=== PATIENT | male | born 1980 | race Caucasian/White ===

== ENCOUNTER 2018-11-08 10:50 | Inpatient (IN) | payer OTHER ==
[~2018-11-08] VITALS: Ht 167.6 cm; Wt 75.3 kg
[2018-11-08] MEDS ORDERED: ONDANSETRON (ODT) 4 MG TAB ODT STA (12:53)
[2018-11-08] MEDS ORDERED: GLIP10TA14 PO (13:04)
[2018-11-08] MEDS ORDERED: LISI-313 PO (13:05)
[2018-11-08] MEDS ORDERED: ONDANSETRON 4 MG INJ IV PRN ×2 (13:30→17:00)
[2018-11-08] MEDS ORDERED: ACETAMINOPHEN 325 MG TAB PO PRN ×2 (13:30→17:00)
[2018-11-08 14:00] VITALS: BP 121/75; PULSE 86; RESP 18
[2018-11-08] MEDS: AMPHOTERICIN B LIPOSOME 300 MG in DEXTROSE 5% 300 ML IVPB SCH (14:01)
[2018-11-08] MEDS ORDERED: SOD CHLORIDE 0.9% 100 ML ONE (14:27)
[2018-11-08] MEDS ORDERED: IOHEXOL 300MG/ML 150 ML BTL ONE (14:27)
[2018-11-08 15:24] VITALS: Ht 167.6 cm; Wt 75.3 kg
--- NOTE | 2018-11-08 15:59 | CONS ---
DATE OF ADMISSION: 11/08/2018 DATE OF CONSULTATION: 11/08/2018 TYPE OF CONSULTATION: Infectious disease. REASON FOR CONSULTATION: Antibiotic management. HISTORY OF PRESENT ILLNESS: Len Arias is a very pleasant 38-year-old male who was seen in my office yesterday for chronic pulmonary coccidioidomycosis with cavitation with possible dissemi nation. His problems include: 1. Adult-onset diabetes mellitus. 2. Hyperlipidemia. 3. Chronic pulmonary cocci. The patient claims to have cocci pneumonia in 05/2017. He was placed on fluconazole for a year, but admits that was stopped because of elevated liver function tests. He was sent to an ID consultation 11/2017 with titers of 1:256. His fluconazole was again stopped because of increased liver function tests. His cocci Comp fix was 1:1024. On 08/02/2018, he had a large ____ with cavity in the superio r segment of the left upper lobe of the lung. He complains of cough with muscle aches and pains. PAST MEDICAL HISTORY: Operations as outlined. FAMILY HISTORY: Noncontributory. SOCIAL HISTORY: He is , has a boy and a girl. His mother and father are alive. Has 1 brothe r and 3 sisters. He was born in [place], moved here 19 years ago. 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 Does not eat unpasteurized milk products, raw fish or raw meat. ALLERGIES: NONE TO PENICILLIN, SULFA OR FOODS. MEDICATIONS: Per chart. REVIEW OF SYSTEMS: As per HPI. PHYSICAL EXAMINATION: GENERAL: He is a well-developed, well-nourished male who is alert, responsive, in no acute distress. VITAL SIGNS: Stable. He is afebrile. SKIN: Without generalized rash. HEENT: Within normal limits. NECK: Supple. LYMPH NODES: None palpable. CHEST: Decreased breath sounds at the bases. HEART: Without murmur or gallop. ABDOMEN: Soft, nontender, without organosplenomegaly or masses. EXTREMITIES: Without cyanosis, clubbing or edema. RECTAL AND GENITAL: Deferred. NEUROLOGIC: No focal neurological abnormality. LABORATORY DATA: White count today is 6.9, H and H of 15.8 and 45.7, platelet count 267,000. BUN an d creatinine is 17/0.80. His urine is negative for nitrite and leukocyte esterase. Glucose is 3+ in the urine. IMAGING: His chest x-ray shows ill-defined left perihilar spiculated opacity measuring 2.6 cm. A fo llowup chest CT scan with contrast is recommended. IMPRESSION AND PLAN: The patient has chronic pulmonary cocci and may very well have disseminated joel ci, although Sporanox may be effective. It is more likely that he will need amphotericin B and he rodriguez s been started on the amphotericin B by Dr. Poole in the emergency room. He is on ____. He shoul d be seen by pulmonary. He should be seen by thoracic surgery. He probably needs a bone density lissette dy. He needs a PICC line and amphotericin B in order to get his cocci comp fixation down. I discuss ed the case with Dr. Poole and also with Dr. Calderón who will be the primary physician. Dictated By: MAYRA ZAPATA MD, JD/SHON Conf#: [id number] DID#: [id number] CC: ALYCE CALDERÓN;*EndCC*
--- NOTE | 2018-11-08 16:45 | QN ---
Documentation Comment SEEN AND EXAMINED ALYCE CALDERÓN MD Nov 08, 2018 16:45
[2018-11-08] MEDS ORDERED: AMPHOTERICIN B LIPOSOME 300 MG in DEXTROSE 5% 300 ML IVPB SCH (17:00)
[2018-11-08] MEDS ORDERED: NACL 0.9% 3 ML SYG IV SCH (17:00)
[2018-11-08] MEDS ORDERED: HYDROCODONE/APAP (5/325) TAB PO PRN (17:00)
[2018-11-08] MEDS ORDERED: MAGNESIUM HYDROXIDE 30ML CUP PO PRN (17:00)
[2018-11-08] MEDS: glipiZIDE 10 MG TAB PO SCH (17:35)
[2018-11-08] MEDS: ACCU-CHEK XX SCH ×2 (17:35→21:00)
[2018-11-08] MEDS ORDERED: DEXTROSE 50% 50 ML SYRINGE IV PRN ×2 (18:00)
[2018-11-08] MEDS ORDERED: GLUCOSE GEL 15 GRAM TUBE BUCCAL PRN (18:00)
[2018-11-08] MEDS ORDERED: GLUCAGON 1 MG INJ IM PRN (18:00)
[2018-11-08] MEDS ORDERED: GLUCOSE GEL 15 GRAM TUBE PO PRN ×2 (18:00)
[2018-11-08] MEDS: SOD CHLORIDE 0.9% 1,000 ML IV SCH (18:01)
[2018-11-08] MEDS: LISINOPRIL 5 MG TAB PO SCH (18:04)
[2018-11-08] MEDS: INSULIN ASPART [NOVOLOG] 3 ML PEN SC SCH ×2 (18:10→20:52)
--- NOTE | 2018-11-08 19:05 | HP ---
DATE OF ADMISSION: 11/08/2018 REASON FOR ADMISSION: Coccidioidomycosis. HISTORY OF PRESENTING ILLNESS: This is a 38-year-old male with past medical history of diabetes, hyp erlipidemia, who was diagnosed with cocci pneumonia in 05/2017. He was placed on fluconazole 400 mg for a year, but admits that it was stopped because of the elevated liver function tests. He was sent to ID consultation on 11/2017 with titers of 1:256. His fluconazole was again stopped because of in creased liver function tests. His cocci Comp fixation is 1:1024. Patient was seen by Dr. Zapata on 08/02/2018. He had a CT of the chest that showed large cavity 4 cm lesion in the superior segment of the left upper lobe consistent with coccidioidomycosis. He was complaining of cough, muscle ache pa in, shortness of breath and was sent in from Dr. Zapata's office for further evaluation. PAST MEDICAL HISTORY: 1. Diabetes type 2. 2. Hyperlipidemia. 3. Chronic pulmonary cocci. ALLERGIES: NONE. PAST SURGICAL HISTORY: None. SOCIAL HISTORY: Denies any history of smoking or drug use. Occasionally drinks alcohol. He lives [facility]. 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 He was from [place], moved here 19 years ago. Does not eat unpa steurized milk products, raw fish or raw meat. FAMILY HISTORY: Noncontributory. REVIEW OF SYSTEMS: The patient complains of some shortness of breath, some cough. Denied any fevers and chills. Denied any hemoptysis. Denied any chest pain. Denied any hematemesis, any melena, any bright red blood per rectum. Denied any focal neurological deficit. PHYSICAL EXAMINATION: VITAL SIGNS: Blood pressure 120/77, heart rate 62, temperature 98.6, afebrile, saturating 98%. GENERAL: The patient is awake, alert, oriented, does not appear to be in any acute distress. HEENT: Pupils are equal, round, reactive to light. NECK: Supple. No JVD. HEART: Regular rate and rhythm. LUNGS: Clear to auscultation bilaterally. ABDOMEN: Soft, nontender, nondistended, positive normoactive bowel sounds. EXTREMITIES: No clubbing, cyanosis or edema. NEUROLOGIC: Nonfocal. LABORATORY DATA: Showed BMP within normal limit. Glucose of 355. AST 85, ALT 163. White count 6.9 , hemoglobin 15.8, platelet count 267. UA is negative. ASSESSMENT AND PLAN: This is a 38-year-old male who presented with: 1. History of coccidioidomycosis with 4 cm lung mass consistent with coccidioidomycosis on the CAT s can which was done in 07/2018, concern for disseminated coccidioidomycosis. 2. Diabetes, uncontrolled. 3. Elevated LFTs, likely secondary to Diflucan/fatty liver. 4. Hyperlipidemia. 5. Hypertension. PLAN: At this period of time, the patient is admitted to med/surg. The patient will be started on I V amphotericin, IV fluids. Dr. Zapata consultation has been obtained. Dr. Zapata wanted to obtain b one scan. Pulmonary consultation and vascular consultation. Rest of the treatment will depend on e patient's hospitalization course. Dictated By: ALYCE ECHAVARRIA/SHON Conf#: [id number] DID#: [id number] CC: MAYRA ZAPATA MD;*EndCC*
[2018-11-08 20:00] VITALS: BP 112/74; PULSE 59; RESP 18
[2018-11-09 02:00] VITALS: BP 102/54; PULSE 58; RESP 18
[2018-11-09] MEDS: ACCU-CHEK XX SCH ×5 (02:00→21:00)
[2018-11-09] MEDS: PANTOPRAZOLE (EC) 40 MG TAB PO SCH (05:43)
--- NOTE | 2018-11-09 07:36 | ERD ---
ER Documentation Chief Complaint Chief Complaint SENT BY PMD FOR EVAL VALLEY FEVER; HX FOR 2 YEARS. HPI This is a 38-year-old male who has a known history of chronic pulmonary coccidioidomycosis which was diagnosed in 2016. The patient had been placed on fluconazole for over 1 year. Indicates that this medication had been stopped due to adverse effects of transaminitis. The patient had been referred for an infectious disease consult in November 2017 and has been seen by Dr. Bahena. The patient in July 2018 roughly 4 months ago had a large cavity in the superior segment of the left upper lobe of the lung. There was concern with cavitation and possible distant mentation. The patient complains of cough, nonproductive, with no hemoptysis. He complains of generalized muscle aches and pains. He states he has had no fevers or shaking or chills. He denies any weight loss. He has no shortness of breath at rest or exertion. ROS All systems reviewed and are negative except as per history of present illness. Medications Home Meds Reported Medications Lisinopril* (Lisinopril*) 5 Mg Tablet, 5 MG PO DAILY, #30 TAB 11/08/18 Glipizide* (Glipizide*) 10 Mg Tablet, 10 MG PO AC BREAKFAST DINNER, TAB 11/08/18 Allergies Allergies: Coded Allergies: No Known Allergy (Unverified , 11/08/18) PMhx/Soc History of Surgery: Yes (ingrown nail removal) Anesthesia Reaction: Yes Hx Neurological Disorder: Yes (neuropathy, dioesnt feel pain in fingers) Hx Respiratory Disorders: Yes (4cm lesion in lower left lung) Hx Cardiac Disorders: No Hx Psychiatric Problems: No Hx Miscellaneous Medical Probl: No Hx Alcohol Use: Yes Hx Substance Use: No Hx Tobacco Use: No Smoking Status: Never smoker Physical Exam Vitals Vital Signs Date Temp Pulse Resp B/P (MAP) Pulse Ox O2 O2 Flow FiO2 Time Delivery Rate 11/08/18 98.6 65 18 131/75 98 Room Air 12:39 (93) 11/08/18 98.6 98 18 124/84 99 11:21 (97) Physical Exam Constitutional:Well-developed. Well-nourished. Nontoxic in appearance HEENT:Normocephalic. Atraumatic.Pupils were equal round reactive to light. Moist mucous membranes.No tonsillar exudates. Neck: No nuchal rigidity. No lymphadenopathy. No posterior cervical spine tenderness or step-offs. Respiratory: Not using accessory muscles of respiration.Lungs were clear to auscultation bilaterally with diminished breath sounds in the bilateral lower lung bases. No rhonchi. No rales. No wheezing. Cardiovascular: Regular rate regular rhythm.No murmurs. No rubs were appreciated.S1, S2 normal. Distal pulses are palpable 2+ bilaterally. GI: Abdomen was soft. Nontender. Non Distended. No pulsatile abdominal masses or bruits. No rebound. No guarding. Bowel sounds were present and normal. Muscle skeletal: Full range of motion of both the upper and lower extremities bilaterally.Normal muscle tone.No assymetrical calf tenderness or swelling. Skin: No petechia, no purpura. No lesions on the palms or the soles of the feet. No maculopapular rash. NEURO: Patient was alert, awake, orientated x3.No facial droop. Gait observed and normal with no ataxia.Speech had regular rate and rhythm. No focal neurological deficits. Result Diagram: 11/09/18 0447 11/09/18 0447 Results 24 hrs Laboratory Tests Test 11/08/18 12:38 11/08/18 12:39 White Blood Count 6.9 10^3/ul Red Blood Count 5.15 10^6/ul Hemoglobin 15.8 g/dl Hematocrit 45.7 % Mean Corpuscular Volume 88.7 fl Mean Corpuscular Hemoglobin 30.7 pg Mean Corpuscular Hemoglobin Concent 34.6 g/dl Red Cell Distribution Width 11.9 % Platelet Count 267 10^3/UL Mean Platelet Volume 11.2 fl Immature Granulocytes % 0.300 % Neutrophils % 45.5 % Lymphocytes % 44.0 % Monocytes % 5.1 % Eosinophils % 4.5 % Basophils % 0.6 % Nucleated Red Blood Cells % 0.0 /100WBC Immature Granulocytes # 0.020 10^3/ul Neutrophils # 3.1 10^3/ul Lymphocytes # 3.0 10^3/ul Monocytes # 0.4 10^3/ul Eosinophils # 0.3 10^3/ul Basophils # 0.0 10^3/ul Nucleated Red Blood Cells # 0.0 10^3/ul Prothrombin Time 12.2 Sec Prothrombin Time Ratio 1.0 INR International Normalized Ratio 0.89 Activated Partial Thromboplast Time 23.6 Sec Sodium Level 136 mmol/L Potassium Level 4.4 mmol/L Chloride Level 102 mmol/L Carbon Dioxide Level 24 mmol/L Anion Gap 10 Blood Urea Nitrogen 17 mg/dl Creatinine 0.80 mg/dl Est Glomerular Filtrat Rate mL/min > 60 mL/min Glucose Level 395 mg/dl Calcium Level 10.0 mg/dl Total Bilirubin 0.2 mg/dl Direct Bilirubin 0.00 mg/dl Indirect Bilirubin 0.2 mg/dl Aspartate Amino Transf (AST/SGOT) 85 IU/L Alanine Aminotransferase (ALT/SGPT) 163 IU/L Alkaline Phosphatase 90 IU/L Troponin I 0.014 ng/ml Total Protein 7.9 g/dl Albumin 4.3 g/dl Globulin 3.60 g/dl Albumin/Globulin Ratio 1.19 Amylase Level 83 U/L Lipase 149 U/L Urine Color YELLOW Urine Clarity CLEAR Urine pH 6.0 Urine Specific Webber 1.026 Urine Ketones NEGATIVE mg/dL Urine Nitrite NEGATIVE mg/dL Urine Bilirubin NEGATIVE mg/dL Urine Urobilinogen NEGATIVE mg/dL Urine Leukocyte Esterase NEGATIVE Carmen/ul Urine Microscopic RBC 0 /HPF Urine Microscopic WBC 0 /HPF Urine Bacteria FEW /HPF Urine Hemoglobin NEGATIVE mg/dL Urine Glucose 3+ mg/dL Urine Total Protein NEGATIVE mg/dl Current Medications Medications Dose Sig/Alexia Start Time Status Last (Trade) Ordered Route PRN Stop Time Admin Dose Reason Admin Amphotericin 300 ml @ Q24H IVPB 11/08/18 11/08/18 B Liposome 200 mls/hr 12:00 14:01 300 mg/ Dextrose Ondansetron 8 mg ONCE STAT 11/08/18 Cancel HCl (Zofran ODT 12:53 Odt) 11/08/18 12:54 Procedures/MDM This is a very pleasant 38-year-old male with a comp gated past medical history of chronic pulmonary coccidioidomycosis and concerns of dissemination. The patient was placed on publicity writer continuous pulse oximetry and IV access was established by nursing staff. I obtained blood cultures. I also obtained a chest radiograph that was reviewed by both myself the radiologist and indicate the following: Ill-defined left perihilar , spiculated opacity measuring 2.6 cm. Follow-up CT chest with contrast is recommended. Due to these findings I spoke with radiologist and will be obtaining a CT scan of the chest with IV contrast. This was also reviewed by the radiologist and indicated a following: Focal area of solid nodular opacity in the superior segment of the left lower lobe extending posteriorly with surrounding satellite nodules and this could represent an area of focal atypical infection such as fungal disease or mycobacterium. Neoplasm is not excluded and can be correlated with biopsy as clinically warranted. Continued follow-up is recommended with CT after 3 months. The patient no severe electrolyte abnormalities or no leukocytosis. I spoke with the patient's infectious disease physician Dr. Bahena. Dr. Bahena indicated the patient would benefit from a PICC line as he will require long- term antibiotics. The patient was started on amphotericin B antibiotics by myself in the emergency department. The patient has no allergies to penicillin or sulfa was and had complications secondary to the fluconazole due to the transaminitis. The patient will be admitted in serious condition in the care of Dr. Montero. Departure Diagnosis: Primary Impression: Chronic pulmonary coccidioidomycosis Condition: Serious CARL REED MD Nov 09, 2018 07:36
[2018-11-09 07:50] VITALS: BP 112/73; PULSE 56; RESP 16
[2018-11-09] MEDS: SOD CHLORIDE 0.9% 1,000 ML IV SCH (07:59)
[2018-11-09] MEDS: INSULIN ASPART [NOVOLOG] 3 ML PEN SC SCH ×4 (07:59→20:59)
[2018-11-09] MEDS: glipiZIDE 10 MG TAB PO SCH ×2 (08:00→17:21)
[2018-11-09] MEDS: LISINOPRIL 5 MG TAB PO SCH (08:00)
[2018-11-09] MEDS: AMPHOTERICIN B LIPOSOME 300 MG in DEXTROSE 5% 300 ML IVPB SCH (13:27)
--- NOTE | 2018-11-09 13:41 | CONS ---
Assessment/Plan Assessment/Plan Hospital Course (Demo Recall) Alert, feels good, no fevers overnight. He is on amphotericin B. Physical examination well-developed middle-aged man who is alert in no distress. Head atraumatic normocephalic sclera nonicteric neck is supple chest rise symmetrical breath sounds clear heart S1-S2 abdomen soft bowel sounds present extremities no cyanosis Assessment: Disseminated coccidiomycosis Pulmonary cocci Diabetes Plan: Patient is clinically stable he is on appropriate antibiotic regimen, pending pulmonary evaluation, pending PICC line placement Consultation Date/Type/Reason Admit Date/Time Nov 08, 2018 at 13:28 Initial Consult Date Type of Consult id Date/Time of Note DATE: 11/09/18 TIME: 13:41 Exam/Review of Systems Exam Vitals Vital Signs Date Temp Pulse Resp B/P (MAP) Pulse Ox O2 O2 Flow FiO2 Time Delivery Rate 11/09/18 97.8 56 16 112/73 92 Room Air 07:50 (86) Intake and Output 11/08/18 11/08/18 11/09/18 1515:00 23:00 07:00 IntakeIntake Total 570 ml BalanceBalance 570 ml Results Result Diagram: 11/09/18 0447 11/09/18 0447 Results 24hrs Laboratory Tests Test 11/08/18 15:52 11/08/18 18:08 11/08/18 20:47 11/09/18 04:47 Bedside Glucose 355 H 227 H 177 White Blood Count 8.1 Red Blood Count 5.29 Hemoglobin 16.2 Hematocrit 46.8 Mean Corpuscular 88.5 Volume Mean Corpuscular 30.6 Hemoglobin Mean Corpuscular 34.6 Hemoglobin Concent Red Cell 12.2 Distribution Width Platelet Count 257 Mean Platelet Volume 11.2 H Immature 0.500 H Granulocytes % Neutrophils % 55.9 Lymphocytes % 32.3 Monocytes % 6.5 Eosinophils % 4.1 Basophils % 0.7 Nucleated Red Blood 0.0 Cells % Immature 0.040 H Granulocytes # Neutrophils # 4.5 Lymphocytes # 2.6 Monocytes # 0.5 Eosinophils # 0.3 Basophils # 0.1 Nucleated Red Blood 0.0 Cells # Sodium Level 140 Potassium Level 4.2 Chloride Level 105 Carbon Dioxide Level 25 Anion Gap 10 Blood Urea Nitrogen 14 Creatinine 0.77 Est Glomerular > 60 Filtrat Rate mL/min Glucose Level 145 # Hemoglobin A1c 8.8 H Calcium Level 9.4 Phosphorus Level 3.7 Magnesium Level 2.1 Total Bilirubin 0.5 Direct Bilirubin 0.00 Indirect Bilirubin 0.5 Aspartate Amino 77 H Transf (AST/SGOT) Alanine 142 H Aminotransferase (AL T/SGPT) Alkaline Phosphatase 88 Total Protein 7.5 Albumin 4.1 Globulin 3.40 H Albumin/Globulin 1.20 Ratio Test 11/09/18 07:58 11/09/18 11:49 Bedside Glucose 128 155 Medications Medication Current Medications Amphotericin B Liposome 300 mg/ Dextrose 300 ml @ 200 mls/hr Q24H IVPB Last administered on 11/09/18at 13:27; Admin Dose 200 MLS/HR; Start 11/08/18 at 12:00 Glipizide (Glucotrol) 10 mg AC BREAKFAST DINNER PO Last administered on 11/09/18 08:00; Admin Dose 10 MG; Start 11/08/18 at 17:35 Lisinopril (Zestril) 5 mg DAILY PO Last administered on 11/09/18 08:00; Admin Dose 5 MG; Start 11/08/18 at 17:00 Diagnostic Test (Pha) (Accu-Chek) 1 ea AC MEALS AND BEDTIME XX ; Start 11/08/18 at 17:35 Sodium Chloride 1,000 ml @ 70 mls/hr [id number] IV Last administered on 11/09/18at 07:59; Admin Dose 70 MLS/HR; Start 11/08/18 at 16:49 IV Flush (NS 3 ml) 3 ml PER PROTOCOL IV ; Start 11/08/18 at 17:00 Ondansetron HCl (Zofran Inj) 4 mg Q6H PRN IV NAUSEA/VOMITING; Start 11/08/18 at 17:00 Acetaminophen (Tylenol Tab) 650 mg Q6H PRN PO .PAIN 1-3 OR TEMP; Start 11/08/18 at 17:00 Acetaminophen/ Hydrocodone Bitart ([place] (5/325)) 1 tab Q6H PRN PO .MOD PAIN 4- 6; Start 11/08/18 at 17:00 Magnesium Hydroxide (Milk Of Mag) 30 ml DAILY PRN PO .CONSTIPATION; Start 11/08/18 at 17:00 Pantoprazole (Protonix Tab) 40 mg DAILY@06 PO Last administered on 11/09/18at 05:43; Admin Dose 40 MG; Start 11/09/18 at 06:00 Diagnostic Test (Pha) (Accu-Chek) 1 ea 02 XX ; Start 11/09/18 at 02:00 Insulin Aspart (Novolog Insulin Pen) NOVOLOG *MILD* ALGORITHM WITH MEALS BEDTIME SC Last administered on 11/09/18at 11:52; Admin Dose 1 UNIT; Start 11/08/18 at 18:05 Miscellaneous Information 1 ea NOTE XX ; Start 11/08/18 at 18:00 Glucose (Glutose) 15 gm Q15M PRN PO DECREASED GLUCOSE; Start 11/08/18 at 18:00 Glucose (Glutose) 22.5 gm Q15M PRN PO DECREASED GLUCOSE; Start 11/08/18 at 18:00 Dextrose (D50w Syringe) 25 ml Q15M PRN IV DECREASED GLUCOSE; Start 11/08/18 at 18:00 Dextrose (D50w Syringe) 50 ml Q15M PRN IV DECREASED GLUCOSE; Start 11/08/18 at 18:00 Glucagon (Glucagen) 1 mg Q15M PRN IM DECREASED GLUCOSE; Start 11/08/18 at 18:00 Glucose (Glutose) 15 gm Q15M PRN BUCCAL DECREASED GLUCOSE; Start 11/08/18 at 18:00 DEBBIE BELL NP Nov 09, 2018 13:41
--- NOTE | 2018-11-09 14:15 | PN ---
ALLIE BONILLA 11/09/18 1413: Date/Time of Note Date/Time of Note DATE: 11/09/18 TIME: 14:02 Assessment/Plan VTE Prophylaxis Risk score (from [facility] [place])>0 risk: 1 SCD applied (from [facility] [place]): No SCD contraindicated: low risk/ambulating Pharmacological prophylaxis: NA/contraindicated Pharm contraindication: low risk/ambulating Lines/Catheters IV C[facility]ter Type (from [facility]): Peripheral IV Urinary Cath still in place: No Assessment/Plan Hospital Course 1. 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 2. Diabetes mellitus type II, uncontrolled. 3. Elevated LFTs, likely secondary to Diflucan/fatty liver. 4. Hyperlipidemia. 5. Hypertension. Assessment/Plan - med/surg. -ambulate BID -blood cul. pending -DVT proph. ambulation -GI prophylaxis Protonix po -c/w IV amphotericin, -c/w IV fluids. -Dr. Bahena consultation is appreciated - Pulmonary consultation - vascular consultation. Result Diagram: 11/09/1844611/09/187 Results 24hrs Laboratory Tests Test 11/08/18 15:52 11/08/18 18:08 11/08/18 20:47 11/09/18 04:47 Bedside Glucose 355 H 227 H 177 White Blood Count 8.1 Red Blood Count 5.29 Hemoglobin 16.2 Hematocrit 46.8 Mean Corpuscular 88.5 Volume Mean Corpuscular 30.6 Hemoglobin Mean Corpuscular 34.6 Hemoglobin Concent Red Cell 12.2 Distribution Width Platelet Count 257 Mean Platelet Volume 11.2 H Immature 0.500 H Granulocytes % Neutrophils % 55.9 Lymphocytes % 32.3 Monocytes % 6.5 Eosinophils % 4.1 Basophils % 0.7 Nucleated Red Blood 0.0 Cells % Immature 0.040 H Granulocytes # Neutrophils # 4.5 Lymphocytes # 2.6 Monocytes # 0.5 Eosinophils # 0.3 Basophils # 0.1 Nucleated Red Blood 0.0 Cells # Sodium Level 140 Potassium Level 4.2 Chloride Level 105 Carbon Dioxide Level 25 Anion Gap 10 Blood Urea Nitrogen 14 Creatinine 0.77 Est Glomerular > 60 Filtrat Rate mL/min Glucose Level 145 # Hemoglobin A1c 8.8 H Calcium Level 9.4 Phosphorus Level 3.7 Magnesium Level 2.1 Total Bilirubin 0.5 Direct Bilirubin 0.00 Indirect Bilirubin 0.5 Aspartate Amino 77 H Transf (AST/SGOT) Alanine 142 H Aminotransferase (AL T/SGPT) Alkaline Phosphatase 88 Total Protein 7.5 Albumin 4.1 Globulin 3.40 H Albumin/Globulin 1.20 Ratio Test 11/09/18 07:58 11/09/18 11:49 Bedside Glucose 128 155 Exam/Review of Systems Exam Vitals Vital Signs Date Temp Pulse Resp B/P (MAP) Pulse Ox O2 O2 Flow FiO2 Time Delivery Rate 11/09/18 97.8 56 16 112/73 92 Room Air 07:50 (86) Intake and Output 11/08/18 11/08/18 11/09/18 1515:00 23:00 07:00 IntakeIntake Total 570 ml BalanceBalance 570 ml Gastrointestinal: soft Extremities: normal pulses Results Result Diagram: 11/09/18 0447 11/09/18 0447 Results 24hrs Laboratory Tests Test 11/08/18 15:52 11/08/18 18:08 11/08/18 20:47 11/09/18 04:47 Bedside Glucose 355 H 227 H 177 White Blood Count 8.1 Red Blood Count 5.29 Hemoglobin 16.2 Hematocrit 46.8 Mean Corpuscular 88.5 Volume Mean Corpuscular 30.6 Hemoglobin Mean Corpuscular 34.6 Hemoglobin Concent Red Cell 12.2 Distribution Width Platelet Count 257 Mean Platelet Volume 11.2 H Immature 0.500 H Granulocytes % Neutrophils % 55.9 Lymphocytes % 32.3 Monocytes % 6.5 Eosinophils % 4.1 Basophils % 0.7 Nucleated Red Blood 0.0 Cells % Immature 0.040 H Granulocytes # Neutrophils # 4.5 Lymphocytes # 2.6 Monocytes # 0.5 Eosinophils # 0.3 Basophils # 0.1 Nucleated Red Blood 0.0 Cells # Sodium Level 140 Potassium Level 4.2 Chloride Level 105 Carbon Dioxide Level 25 Anion Gap 10 Blood Urea Nitrogen 14 Creatinine 0.77 Est Glomerular > 60 Filtrat Rate mL/min Glucose Level 145 # Hemoglobin A1c 8.8 H Calcium Level 9.4 Phosphorus Level 3.7 Magnesium Level 2.1 Total Bilirubin 0.5 Direct Bilirubin 0.00 Indirect Bilirubin 0.5 Aspartate Amino 77 H Transf (AST/SGOT) Alanine 142 H Aminotransferase (AL T/SGPT) Alkaline Phosphatase 88 Total Protein 7.5 Albumin 4.1 Globulin 3.40 H Albumin/Globulin 1.20 Ratio Test 11/09/18 07:58 11/09/18 11:49 Bedside Glucose 128 155 Medications Medication Current Medications Amphotericin B Liposome 300 mg/ Dextrose 300 ml @ 200 mls/hr Q24H IVPB Last administered on 11/09/18at 13:27; Admin Dose 200 MLS/HR; Start 11/08/18 at 12:00 Glipizide (Glucotrol) 10 mg AC BREAKFAST DINNER PO Last administered on 11/09/18at 08:00; Admin Dose 10 MG; Start 11/08/18 at 17:35 Lisinopril (Zestril) 5 mg DAILY PO Last administered on 11/09/18 08:00; Admin Dose 5 MG; Start 11/08/18 at 17:00 Diagnostic Test (Pha) (Accu-Chek) 1 ea AC MEALS AND BEDTIME XX ; Start 11/08/18 at 17:35 Sodium Chloride 1,000 ml @ 70 mls/hr [id number] IV Last administered on 11/09/18at 07:59; Admin Dose 70 MLS/HR; Start 11/08/18 at 16:49 IV Flush (NS 3 ml) 3 ml PER PROTOCOL IV ; Start 11/08/18 at 17:00 Ondansetron HCl (Zofran Inj) 4 mg Q6H PRN IV NAUSEA/VOMITING; Start 11/08/18 at 17:00 Acetaminophen (Tylenol Tab) 650 mg Q6H PRN PO .PAIN 1-3 OR TEMP; Start 11/08/18 at 17:00 Acetaminophen/ Hydrocodone Bitart ([place] (5/325)) 1 tab Q6H PRN PO .MOD PAIN 4- 6; Start 11/08/18 at 17:00 Magnesium Hydroxide (Milk Of Mag) 30 ml DAILY PRN PO .CONSTIPATION; Start 11/08/18 at 17:00 Pantoprazole (Protonix Tab) 40 mg DAILY@06 PO Last administered on 11/09/18at 05:43; Admin Dose 40 MG; Start 11/09/18 at 06:00 Diagnostic Test (Pha) (Accu-Chek) 1 ea 02 XX ; Start 11/09/18 at 02:00 Insulin Aspart (Novolog Insulin Pen) NOVOLOG *MILD* ALGORITHM WITH MEALS BEDTIME SC Last administered on 11/09/18at 11:52; Admin Dose 1 UNIT; Start 11/08/18 at 18:05 Miscellaneous Information 1 ea NOTE XX ; Start 11/08/18 at 18:00 Glucose (Glutose) 15 gm Q15M PRN PO DECREASED GLUCOSE; Start 11/08/18 at 18:00 Glucose (Glutose) 22.5 gm Q15M PRN PO DECREASED GLUCOSE; Start 11/08/18 at 18:00 Dextrose (D50w Syringe) 25 ml Q15M PRN IV DECREASED GLUCOSE; Start 11/08/18 at 18:00 Dextrose (D50w Syringe) 50 ml Q15M PRN IV DECREASED GLUCOSE; Start 11/08/18 at 18:00 Glucagon (Glucagen) 1 mg Q15M PRN IM DECREASED GLUCOSE; Start 11/08/18 at 18:00 Glucose (Glutose) 15 gm Q15M PRN BUCCAL DECREASED GLUCOSE; Start 11/08/18 at 18:00 ALYCE CALDERÓN MD 11/09/18 1557: Assessment/Plan Assessment/Plan Hospital Course Plan - iv amphotericin - ? PICC, will check with home health if they do amphotericin at home - Will call Dr Braun - DM control - ISS - IV fluids Result Diagram: 11/09/1844611/09/18446 Subjective 24 Hr Interval Summary Free Text/Dictation pt seen and examined no complains Exam/Review of Systems Exam Exam GENERAL: The patient is awake, alert, oriented, does not appear to be in any acute distress. HEENT: Pupils are equal, round, reactive to light. NECK: Supple. No JVD. HEART: Regular rate and rhythm. LUNGS: Clear to auscultation bilaterally. ABDOMEN: Soft, nontender, nondistended, positive normoactive bowel sounds. EXTREMITIES: No clubbing, cyanosis or edema. NEUROLOGIC: Nonfocal. ALLIE BONILLA Nov 09, 2018 14:13 ALYCE CALDERÓN MD Nov 09, 2018 15:57
[2018-11-09 14:30] VITALS: BP 119/74; PULSE 61; RESP 16
--- NOTE | 2018-11-09 15:34 | CONS ---
DATE OF ADMISSION: 11/08/2018 DATE OF CONSULTATION: 11/09/2018 TYPE OF CONSULTATION: Pulmonary. REASON FOR CONSULTATION: Abnormal imaging. HISTORY OF PRESENT ILLNESS: This is a 38-year-old gentleman who was diagnosed with coccidioidomycosi s approximately a year and a half ago and had continued 1-1/2 years of which was recently stop ped secondary to elevated liver function tests. He has had an elevated Comp 6 and was seen by infect ious diseases and most recently had a CT of the chest which showed large lesion in the left lower lob e. The patient denies any significant tobacco history. 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 SYSTEMS REVIEW: A 12-point review of systems was negative other than that mentioned above. PHYSICAL EXAMINATION: GENERAL: Well-nourished, well-developed gentleman, talking in full and complete sentences. VITAL SIGNS: Currently afebrile, pulse is 56, blood pressure 112/73, O2 saturation 96% on 2 L nasal cannula. NECK: Supple, no JVD or lymphadenopathy. CARDIAC: S1, S2, no added sounds or murmurs. CHEST: Diminished air entry bilaterally. ABDOMEN: Soft, nontender. No guarding or rebound. EXTREMITIES: No cyanosis, clubbing, 1+ edema. NEUROLOGIC: Grossly intact. No focal deficits. LABORATORY DATA: White count 8.1, hemoglobin 16.2. Chemistry within normal limits. Liver function tests showed elevated LFTs, so AST, ALT. Urinalysis unremarkable. Chest CT findings as above. IMPRESSION AND PLAN: 1. Focal nodule mass in left lower lobe consistent with the patient's prior history of coccidioidomy cosis. 2. Elevated liver function tests, prohibiting use of Diflucan. THE PATIENT WILL REQUIRE: 1. Continued IV amphotericin for now. 2. Will require review of previous imaging to establish time of onset of left lower lobe lesion. 3. Continue to monitor liver function tests to exclude obstructive etiology and/or intrinsic liver i ssues. Dictated By: KRISTOPHER QUIROS MD SV/NTS Conf#: [id number] DID#: [id number] CC: ALYCE CALDERÓN;*EndCC*
[2018-11-09 20:00] VITALS: BP 115/77; PULSE 63; RESP 18
[2018-11-10] MEDS: SOD CHLORIDE 0.9% 1,000 ML IV SCH ×3 (01:04→17:38)
[2018-11-10 02:00] VITALS: BP 113/78; PULSE 60; RESP 17
[2018-11-10] MEDS: ACCU-CHEK XX SCH ×5 (02:00→21:00)
[2018-11-10] MEDS: PANTOPRAZOLE (EC) 40 MG TAB PO SCH (06:10)
[2018-11-10] MEDS: INSULIN ASPART [NOVOLOG] 3 ML PEN SC SCH ×4 (07:56→21:00)
[2018-11-10] MEDS: glipiZIDE 10 MG TAB PO SCH ×2 (07:57→17:32)
[2018-11-10] MEDS: LISINOPRIL 5 MG TAB PO SCH (08:00)
[2018-11-10 08:13] VITALS: BP 114/67; PULSE 54; RESP 17
--- NOTE | 2018-11-10 12:08 | CONS ---
Consult Date/Type/Reason Admit Date/Time Nov 08, 2018 at 13:28 Initial Consult Date Type of Consult Pulmonary Date/Time of Note DATE: 11/10/18 TIME: 12:07 Subjective Comfortable this morning no respiratory distress Objective Vital Signs Date Temp Pulse Resp B/P (MAP) Pulse Ox O2 O2 Flow FiO2 Time Delivery Rate 11/10/18 98.3 54 17 114/67 96 Room Air 08:13 (83) Intake and Output 11/09/18 11/09/18 11/10/18 1515:00 23:00 07:00 IntakeIntake Total 980 ml 340 ml 1140 ml BalanceBalance 980 ml 340 ml 1140 ml Exam PHYSICAL EXAMINATION: GENERAL: Well-nourished, well-developed gentleman, talking in full and complete sentences. VITAL SIGNS: NECK: Supple, no JVD or lymphadenopathy. CARDIAC: S1, S2, no added sounds or murmurs. CHEST: Diminished air entry bilaterally. ABDOMEN: Soft, nontender. No guarding or rebound. EXTREMITIES: No cyanosis, clubbing, 1+ edema. NEUROLOGIC: Grossly intact. No focal deficits. Results/Medications Result Diagram: 11/09/18 0447 11/09/18 0447 Results 24 hrs Laboratory Tests Test 11/09/18 17:20 11/09/18 20:58 11/10/18 07:55 11/10/18 11:39 Bedside Glucose 136 147 108 131 Medications Current Medications Amphotericin B Liposome 300 mg/ Dextrose 300 ml @ 200 mls/hr Q24H IVPB Last administered on 11/09/18 13:27; Admin Dose 200 MLS/HR; Start 11/08/18 at 12:00 Glipizide (Glucotrol) 10 mg AC BREAKFAST DINNER PO Last administered on 11/10/18at 07:57; Admin Dose 10 MG; Start 11/08/18 at 17:35 Lisinopril (Zestril) 5 mg DAILY PO Last administered on 11/10/18at 08:00; Admin Dose 5 MG; Start 11/08/18 at 17:00 Diagnostic Test (Pha) (Accu-Chek) 1 ea AC MEALS AND BEDTIME XX ; Start 11/08/18 at 17:35 Sodium Chloride 1,000 ml @ 70 mls/hr [id number] IV Last administered on 11/10/18at 01:04; Admin Dose 70 MLS/HR; Start 11/08/18 at 16:49 IV Flush (NS 3 ml) 3 ml PER PROTOCOL IV ; Start 11/08/18 at 17:00 Ondansetron HCl (Zofran Inj) 4 mg Q6H PRN IV NAUSEA/VOMITING; Start 11/08/18 at 17:00 Acetaminophen (Tylenol Tab) 650 mg Q6H PRN PO .PAIN 1-3 OR TEMP; Start 11/08/18 at 17:00 Acetaminophen/ Hydrocodone Bitart ([place] (5/325)) 1 tab Q6H PRN PO .MOD PAIN 4- 6; Start 11/08/18 at 17:00 Magnesium Hydroxide (Milk Of Mag) 30 ml DAILY PRN PO .CONSTIPATION; Start 11/08/18 at 17:00 Pantoprazole (Protonix Tab) 40 mg DAILY@06 PO Last administered on 11/10/18at 06:10; Admin Dose 40 MG; Start 11/09/18 at 06:00 Diagnostic Test (Pha) (Accu-Chek) 1 ea 02 XX ; Start 11/09/18 at 02:00 Insulin Aspart (Novolog Insulin Pen) NOVOLOG *MILD* ALGORITHM WITH MEALS BEDTIME SC Last administered on 11/09/18at 11:52; Admin Dose 1 UNIT; Start 11/08 at 18:05 Miscellaneous Information 1 ea NOTE XX ; Start 11/08/18 at 18:00 Glucose (Glutose) 15 gm Q15M PRN PO DECREASED GLUCOSE; Start 11/08/18 at 18:00 Glucose (Glutose) 22.5 gm Q15M PRN PO DECREASED GLUCOSE; Start 11/08/18 at 18:00 Dextrose (D50w Syringe) 25 ml Q15M PRN IV DECREASED GLUCOSE; Start 11/08/18 at 18:00 Dextrose (D50w Syringe) 50 ml Q15M PRN IV DECREASED GLUCOSE; Start 11/08/18 at 18:00 Glucagon (Glucagen) 1 mg Q15M PRN IM DECREASED GLUCOSE; Start 11/08/18 at 18:00 Glucose (Glutose) 15 gm Q15M PRN BUCCAL DECREASED GLUCOSE; Start 11/08/18 at 18:00 Assessment/Plan Hospital Course (Demo Recall) IMPRESSION 1. Focal nodule mass in left lower lobe consistent with the patient's prior history of coccidioidomycosis. 2. Elevated liver function tests, prohibiting use of Diflucan. plan 1. Continued IV amphotericin for now. 2. Will require review of previous imaging to establish time of onset of left lower lobe lesion. 3. Continue to monitor liver function tests to exclude obstructive etiology and/or intrinsic liver issues. Can have outpatient workup of this pulmonary lesion. From a pulmonary standpoint patient does not need to remain inpatient unless absolute need for IV medications. KRISTOPHER QUIROS MD, [facility] Nov 10, 2018 12:08
[2018-11-10] MEDS: AMPHOTERICIN B LIPOSOME 300 MG in DEXTROSE 5% 300 ML IVPB SCH (12:25)
--- NOTE | 2018-11-10 12:33 | PN ---
Date/Time of Note Date/Time of Note DATE: 11/10/18 TIME: 12:31 Assessment/Plan VTE Prophylaxis Risk score (from [facility])>0 risk: 1 SCD applied (from [facility]): No SCD contraindicated: low risk/ambulating Pharmacological prophylaxis: NA/contraindicated Pharm contraindication: low risk/ambulating Lines/Catheters [facility] (from [facility] Peripheral IV Urinary Cath still in place: No Assessment/Plan Hospital Course 1. 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 2. Diabetes mellitus type II, uncontrolled. 3. Elevated LFTs, likely secondary to Diflucan/fatty liver. 4. Hyperlipidemia. 5. Hypertension. Assessment/Plan - med/surg. -Bone scan: 1. Small area of mildly to moderately increased tracer accumulation in the right distal femur, nonspecific finding, may be seen in association with prior trauma as well as with a variety of benign and malignant bony lesions. 2. Asymmetrically increased uptake in the right knee, likely represent degenerative/inflammatory process. 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 negative -DVT proph. ambulation -GI prophylaxis Protonix po -c/w IV amphotericin, -c/w IV fluids. -Dr. Bahena consultation is appreciated - Pulmonary consultation - vascular consultation. Result Diagram: 11/09/187 11/09/18446 Results 24hrs Laboratory Tests Test 11/09/18 17:20 11/09/18 20:58 11/10/18 07:55 11/10/18 11:39 Bedside Glucose 136 147 108 131 Subjective 24 Hr Interval Summary Musculoskeletal: bone/joint pain (report some pain right knee) Exam/Review of Systems Exam Vitals Vital Signs Date Temp Pulse Resp B/P (MAP) Pulse Ox O2 O2 Flow FiO2 Time Delivery Rate 11/10/18 98.3 54 17 114/67 96 Room Air 08:13 (83) Intake and Output 11/09/18 11/09/18 11/10/18 1515:00 23:00 07:00 IntakeIntake Total 980 ml 340 ml 1140 ml BalanceBalance 980 ml 340 ml 1140 ml Constitutional: alert, oriented Eyes: nl conjunctiva Neck: supple Cardiovascular: regular rate and rhythm Gastrointestinal: soft Musculoskeletal: range of motion (right knee full ROM) Results Results 24hrs Laboratory Tests Test 11/09/18 17:20 11/09/18 20:58 11/10/18 07:55 11/10/18 11:39 Bedside Glucose 136 147 108 131 Medications Medication Current Medications Amphotericin B Liposome 300 mg/ Dextrose 300 ml @ 200 mls/hr Q24H IVPB Last administered on 11/10/18at 12:25; Admin Dose 200 MLS/HR; Start 11/08/18 at 12:00 Glipizide (Glucotrol) 10 mg AC BREAKFAST DINNER PO Last administered on 11/10/18at 07:57; Admin Dose 10 MG; Start 11/08/18 at 17:35 Lisinopril (Zestril) 5 mg DAILY PO Last administered on 11/10/18at 08:00; Admin Dose 5 MG; Start 11/08/18 at 17:00 Diagnostic Test (Pha) (Accu-Chek) 1 ea AC MEALS AND BEDTIME XX ; Start 11/08/18 at 17:35 Sodium Chloride 1,000 ml @ 70 mls/hr [id number] IV Last administered on 11/10/18at 01:04; Admin Dose 70 MLS/HR; Start 11/08/18 at 16:49 IV Flush (NS 3 ml) 3 ml PER PROTOCOL IV ; Start 11/08/18 at 17:00 Ondansetron HCl (Zofran Inj) 4 mg Q6H PRN IV NAUSEA/VOMITING; Start 11/08/18 at 17:00 Acetaminophen (Tylenol Tab) 650 mg Q6H PRN PO .PAIN 1-3 OR TEMP; Start 11/08/18 at 17:00 Acetaminophen/ Hydrocodone Bitart ([place] (5/325)) 1 tab Q6H PRN PO .MOD PAIN 4- 6; Start 11/08/18 at 17:00 Magnesium Hydroxide (Milk Of Mag) 30 ml DAILY PRN PO .CONSTIPATION; Start 11/08/18 at 17:00 Pantoprazole (Protonix Tab) 40 mg DAILY@06 PO Last administered on 11/10/18at 06:10; Admin Dose 40 MG; Start 11/09/18 at 06:00 Diagnostic Test (Pha) (Accu-Chek) 1 ea 02 XX ; Start 11/09/18 at 02:00 Insulin Aspart (Novolog Insulin Pen) NOVOLOG *MILD* ALGORITHM WITH MEALS BEDTIME SC Last administered on 11/09/18at 11:52; Admin Dose 1 UNIT; Start 11/08/18 at 18:05 Miscellaneous Information 1 ea NOTE XX ; Start 11/08/18 at 18:00 Glucose (Glutose) 15 gm Q15M PRN PO DECREASED GLUCOSE; Start 11/08/18 at 18:00 Glucose (Glutose) 22.5 gm Q15M PRN PO DECREASED GLUCOSE; Start 11/08/18 at 18:00 Dextrose (D50w Syringe) 25 ml Q15M PRN IV DECREASED GLUCOSE; Start 11/08/18 at 18:00 Dextrose (D50w Syringe) 50 ml Q15M PRN IV DECREASED GLUCOSE; Start 11/08/18 at 18:00 Glucagon (Glucagen) 1 mg Q15M PRN IM DECREASED GLUCOSE; Start 11/08/18 at 18:00 Glucose (Glutose) 15 gm Q15M PRN BUCCAL DECREASED GLUCOSE; Start 11/08/18 at 18:00 ALLIE BONILLA Nov 10, 2018 12:33
--- NOTE | 2018-11-10 13:13 | CONS ---
Assessment/Plan Assessment/Plan Hospital Course (Demo Recall) No acute events all noted patient had been afebrile blood and urine cultures negative. CT chest and bone scan results noted, please see in the chart Antimicrobials: Amphotericin B. Physical examination well-developed middle-aged man who is alert in no distress. Head atraumatic normocephalic sclera nonicteric neck is supple chest rise symmetrical breath sounds clear heart S1-S2 abdomen soft bowel sounds present extremities no cyanosis Assessment: Disseminated coccidiomycosis Pulmonary cocci Diabetes Plan: Patient is clinically stable, on appropriate antibiotic regimen, pending cardiothoracic surgery evaluation. Patient will require long-term IV amphotericin B, periodic rechecks of cocci complex fixation Consultation Date/Type/Reason Admit Date/Time Nov 08, 2018 at 13:28 Initial Consult Date Type of Consult id Date/Time of Note DATE: 11/10/18 TIME: 13:10 Exam/Review of Systems Exam Vitals Vital Signs Date Temp Pulse Resp B/P (MAP) Pulse Ox O2 O2 Flow FiO2 Time Delivery Rate 11/10/18 98.3 54 17 114/67 96 Room Air 08:13 (83) Intake and Output 11/09/18 11/09/18 11/10/18 1515:00 23:00 07:00 IntakeIntake Total 980 ml 340 ml 1140 ml BalanceBalance 980 ml 340 ml 1140 ml Results Result Diagram: 11/09/18 0447 11/09/18 0447 Results 24hrs Laboratory Tests Test 11/09/18 17:20 11/09/18 20:58 11/10/18 07:55 11/10/18 11:39 Bedside Glucose 136 147 108 131 Medications Medication Current Medications Amphotericin B Liposome 300 mg/ Dextrose 300 ml @ 200 mls/hr Q24H IVPB Last administered on 11/10/18at 12:25; Admin Dose 200 MLS/HR; Start 11/08/18 at 12:00 Glipizide (Glucotrol) 10 mg AC BREAKFAST DINNER PO Last administered on 11/10/18at 07:57; Admin Dose 10 MG; Start 11/08/18 at 17:35 Lisinopril (Zestril) 5 mg DAILY PO Last administered on 11/10/18at 08:00; Admin Dose 5 MG; Start 11/08/18 at 17:00 Diagnostic Test (Pha) (Accu-Chek) 1 ea AC MEALS AND BEDTIME XX ; Start 11/08/18 at 17:35 Sodium Chloride 1,000 ml @ 70 mls/hr [id number] IV Last administered on 11/10/18at 01:04; Admin Dose 70 MLS/HR; Start 11/08/18 at 16:49 IV Flush (NS 3 ml) 3 ml PER PROTOCOL IV ; Start 11/08/18 at 17:00 Ondansetron HCl (Zofran Inj) 4 mg Q6H PRN IV NAUSEA/VOMITING; Start 11/08/18 at 17:00 Acetaminophen (Tylenol Tab) 650 mg Q6H PRN PO .PAIN 1-3 OR TEMP; Start 11/08/18 at 17:00 Acetaminophen/ Hydrocodone Bitart ([place] (5/325)) 1 tab Q6H PRN PO .MOD PAIN 4- 6; Start 11/08/18 at 17:00 Magnesium Hydroxide (Milk Of Mag) 30 ml DAILY PRN PO .CONSTIPATION; Start 11/08/18 at 17:00 Pantoprazole (Protonix Tab) 40 mg DAILY@06 PO Last administered on 11/10/18at 06:10; Admin Dose 40 MG; Start 11/09/18 at 06:00 Diagnostic Test (Pha) (Accu-Chek) 1 ea 02 XX ; Start 11/09/18 at 02:00 Insulin Aspart (Novolog Insulin Pen) NOVOLOG *MILD* ALGORITHM WITH MEALS B EDTIME SC Last administered on 11/09/18at 11:52; Admin Dose 1 UNIT; Start 11/08/18 at 18:05 Miscellaneous Information 1 ea NOTE XX ; Start 11/08/18 at 18:00 Glucose (Glutose) 15 gm Q15M PRN PO DECREASED GLUCOSE; Start 11/08/18 at 18:00 Glucose (Glutose) 22.5 gm Q15M PRN PO DECREASED GLUCOSE; Start 11/08/18 at 18:00 Dextrose (D50w Syringe) 25 ml Q15M PRN IV DECREASED GLUCOSE; Start 11/08/18 at 18:00 Dextrose (D50w Syringe) 50 ml Q15M PRN IV DECREASED GLUCOSE; Start 11/08/18 at 18:00 Glucagon (Glucagen) 1 mg Q15M PRN IM DECREASED GLUCOSE; Start 11/08/18 at 18:00 Glucose (Glutose) 15 gm Q15M PRN BUCCAL DECREASED GLUCOSE; Start 11/08/18 at 18:00 DEBBIE BELL NP Nov 10, 2018 13:13
[2018-11-10 14:00] VITALS: BP 108/59; PULSE 58; RESP 16
[2018-11-10 20:29] VITALS: BP 128/75; PULSE 75; RESP 18
[2018-11-11] MEDS: ACCU-CHEK XX SCH ×5 (02:00→20:43)
[2018-11-11] MEDS: SOD CHLORIDE 0.9% 1,000 ML IV SCH ×3 (02:01→22:05)
[2018-11-11 02:36] VITALS: BP 98/60; PULSE 59; RESP 20
[2018-11-11 03:14] VITALS: BP 105/59; PULSE 62; RESP 19
[2018-11-11] MEDS: PANTOPRAZOLE (EC) 40 MG TAB PO SCH (05:32)
[2018-11-11] MEDS: glipiZIDE 10 MG TAB PO SCH ×2 (07:44→16:59)
[2018-11-11] MEDS: LISINOPRIL 5 MG TAB PO SCH (07:47)
[2018-11-11] MEDS: INSULIN ASPART [NOVOLOG] 3 ML PEN SC SCH ×4 (07:48→20:43)
[2018-11-11 08:04] VITALS: BP 113/77; PULSE 65; RESP 16
--- NOTE | 2018-11-11 10:02 | PN ---
Date/Time of Note Date/Time of Note DATE: 11/11/18 TIME: 10:01 Assessment/Plan VTE Prophylaxis Risk score (from Ns)>0 risk: 1 SCD applied (from Ns): No SCD contraindicated: low risk/ambulating Pharmacological prophylaxis: NA/contraindicated Pharm contraindication: low risk/ambulating Lines/Catheters IV Catheter Type (from [facility] Peripheral IV Urinary Cath still in place: No Assessment/Plan Hospital Course 1. 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 2. Diabetes mellitus type II, uncontrolled. 3. Elevated LFTs, likely secondary to Diflucan/fatty liver. 4. Hyperlipidemia. 5. Hypertension. Assessment/Plan -case management to arrange Amph at home -Bone scan: 1. Small area of mildly to moderately increased tracer accumulation in the right distal femur, nonspecific finding, may be seen in association with prior trauma as well as with a variety of benign and malignant bony lesions. 2. Asymmetrically increased uptake in the right knee, likely represent degenerative/inflammatory process. 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 negative -DVT proph. ambulation -GI prophylaxis Protonix po -c/w IV amphotericin, -Dr. Bahena consultation is appreciated - Pulmonary consultation Result Diagram: 11/09/18 0447 11/11/18 0524 Results 24hrs Laboratory Tests Test 11/10/18 11:39 11/10/18 17:09 11/10/18 20:45 11/11/18 05:24 Bedside Glucose 131 106 117 Sodium Level 143 Potassium Level 4.2 Chloride Level 110 Carbon Dioxide Level 25 Anion Gap 8 Blood Urea Nitrogen 23 H Creatinine 1.02 Est Glomerular > 60 Filtrat Rate mL/min Glucose Level 130 Calcium Level 9.8 Phosphorus Level 3.9 Magnesium Level 2.4 Test 11/11/18 07:39 Bedside Glucose 136 Subjective 24 Hr Interval Summary Constitutional: no complaints, improved Exam/Review of Systems Exam Vitals Vital Signs Date Temp Pulse Resp B/P (MAP) Pulse Ox O2 O2 Flow FiO2 Time Delivery Rate 11/11/18 98.1 65 16 113/77 95 08:04 (89) 11/10/18 Room Air 14:00 Intake and Output 11/10/18 11/10/18 11/11/18 1515:00 23:00 07:00 IntakeIntake Total 600 ml 1420 ml 1350 ml BalanceBalance 600 ml 1420 ml 1350 ml Constitutional: alert, oriented Head: normocephalic Neck: supple Respiratory: clear to auscultation Cardiovascular: regular rate and rhythm Results Results 24hrs Laboratory Tests Test 11/10/18 11:39 11/10/18 17:09 11/10/18 20:45 11/11/18 05:24 Bedside Glucose 131 106 117 Sodium Level 143 Potassium Level 4.2 Chloride Level 110 Carbon Dioxide Level 25 Anion Gap 8 Blood Urea Nitrogen 23 H Creatinine 1.02 Est Glomerular > 60 Filtrat Rate mL/min Glucose Level 130 Calcium Level 9.8 Phosphorus Level 3.9 Magnesium Level 2.4 Test 11/11/18 07:39 Bedside Glucose 136 Medications Medication Current Medications Amphotericin B Liposome 300 mg/ Dextrose 300 ml @ 200 mls/hr Q24H IVPB Last administered on 11/10/18at 12:25; Admin Dose 200 MLS/HR; Start 11/08/18 at 12:00 Glipizide (Glucotrol) 10 mg AC BREAKFAST DINNER PO Last administered on 11/11/18at 07:44; Admin Dose 10 MG; Start 11/08/18 at 17:35 Lisinopril (Zestril) 5 mg DAILY PO Last administered on 11/11/18at 07:47; Admin Dose 5 MG; Start 11/08/18 at 17:00 Diagnostic Test (Pha) (Accu-Chek) 1 ea AC MEALS AND BEDTIME XX ; Start 11/08/18 at 17:35 Sodium Chloride 1,000 ml @ 70 mls/hr [id number] IV Last administered on 11/11/18at 05:29; Admin Dose 70 MLS/HR; Start 11/08/18 at 16:49 IV Flush (NS 3 ml) 3 ml PER PROTOCOL IV ; Start 11/08/18 at 17:00 Ondansetron HCl (Zofran Inj) 4 mg Q6H PRN IV NAUSEA/VOMITING; Start 11/08/18 at 17:00 Acetaminophen (Tylenol Tab) 650 mg Q6H PRN PO .PAIN 1-3 OR TEMP; Start 11/08/18 at 17:00 Acetaminophen/ Hydrocodone Bitart ([place] (5/325)) 1 tab Q6H PRN PO .MOD PAIN 4- 6; Start 11/08/18 at 17:00 Magnesium Hydroxide (Milk Of Mag) 30 ml DAILY PRN PO .CONSTIPATION; Start 11/08/18 at 17:00 Pantoprazole (Protonix Tab) 40 mg DAILY@06 PO Last administered on 11/11/18at 05:32; Admin Dose 40 MG; Start 11/09/18 at 06:00 Diagnostic Test (Pha) (Accu-Chek) 1 ea 02 XX ; Start 11/09/18 at 02:00 Insulin Aspart (Novolog Insulin Pen) NOVOLOG *MILD* ALGORITHM WITH MEALS BEDTIME SC Last administered on 11/09/18at 11:52; Admin Dose 1 UNIT; Start 11/08/18 at 18:05 Miscellaneous Information 1 ea NOTE XX ; Start 11/08/18 at 18:00 Glucose (Glutose) 15 gm Q15M PRN PO DECREASED GLUCOSE; Start 11/08/18 at 18:00 Glucose (Glutose) 22.5 gm Q15M PRN PO DECREASED GLUCOSE; Start 11/08/18 at 18:00 Dextrose (D50w Syringe) 25 ml Q15M PRN IV DECREASED GLUCOSE; Start 11/08/18 at 18:00 Dextrose (D50w Syringe) 50 ml Q15M PRN IV DECREASED GLUCOSE; Start 11/08/18 at 18:00 Glucagon (Glucagen) 1 mg Q15M PRN IM DECREASED GLUCOSE; Start 11/08/18 at 18:00 Glucose (Glutose) 15 gm Q15M PRN BUCCAL DECREASED GLUCOSE; Start 11/08/18 at 18:00 ALLIE BONILLA Nov 11, 2018 10:02
--- NOTE | 2018-11-11 11:12 | CONS ---
Consult Date/Type/Reason Admit Date/Time Nov 08, 2018 at 13:28 Initial Consult Date Type of Consult Pulmonary Date/Time of Note DATE: 11/11/18 TIME: 11:12 Subjective Patient stable this morning no respiratory distress Objective Vital Signs Date Temp Pulse Resp B/P (MAP) Pulse Ox O2 O2 Flow FiO2 Time Delivery Rate 11/11/18 98.1 65 16 113/77 95 08:04 (89) 11/10/18 Room Air 14:00 Intake and Output 11/10/18 11/10/18 11/11/18 1515:00 23:00 07:00 IntakeIntake Total 600 ml 1420 ml 1350 ml BalanceBalance 600 ml 1420 ml 1350 ml Exam PHYSICAL EXAMINATION: GENERAL: Well-nourished, well-developed gentleman, talking in full and complete sentences. VITAL SIGNS: NECK: Supple, no JVD or lymphadenopathy. CARDIAC: S1, S2, no added sounds or murmurs. CHEST: Diminished air entry bilaterally. ABDOMEN: Soft, nontender. No guarding or rebound. EXTREMITIES: No cyanosis, clubbing, 1+ edema. NEUROLOGIC: Grossly intact. No focal deficits. Results/Medications Result Diagram: 11/09/18 0447 11/11/18 0524 Results 24 hrs Laboratory Tests Test 11/10/18 11:39 11/10/18 17:09 11/10/18 20:45 11/11/18 05:24 Bedside Glucose 131 106 117 Sodium Level 143 Potassium Level 4.2 Chloride Level 110 Carbon Dioxide Level 25 Anion Gap 8 Blood Urea Nitrogen 23 H Creatinine 1.02 Est Glomerular > 60 Filtrat Rate mL/min Glucose Level 130 Calcium Level 9.8 Phosphorus Level 3.9 Magnesium Level 2.4 Test 11/11/18 07:39 Bedside Glucose 136 Medications Current Medications Amphotericin B Liposome 300 mg/ Dextrose 300 ml @ 200 mls/hr Q24H IVPB Last administered on 11/10/18at 12:25; Admin Dose 200 MLS/HR; Start 11/08/18 at 12:00 Glipizide (Glucotrol) 10 mg AC BREAKFAST DINNER PO Last administered on 11/11/18at 07:44; Admin Dose 10 MG; Start 11/08/18 at 17:35 Lisinopril (Zestril) 5 mg DAILY PO Last administered on 11/11/18at 07:47; Admin Dose 5 MG; Start 11/08/18 at 17:00 Diagnostic Test (Pha) (Accu-Chek) 1 ea AC MEALS AND BEDTIME XX ; Start 11/08/18 at 17:35 Sodium Chloride 1,000 ml @ 70 mls/hr [id number] IV Last administered on 11/11/18at 05:29; Admin Dose 70 MLS/HR; Start 11/08/18 at 16:49 IV Flush (NS 3 ml) 3 ml PER PROTOCOL IV ; Start 11/08/18 at 17:00 Ondansetron HCl (Zofran Inj) 4 mg Q6H PRN IV NAUSEA/VOMITING; Start 11/08/18 at 17:00 Acetaminophen (Tylenol Tab) 650 mg Q6H PRN PO .PAIN 1-3 OR TEMP; Start 11/08/18 at 17:00 Acetaminophen/ Hydrocodone Bitart ([place] (5/325)) 1 tab Q6H PRN PO .MOD PAIN 4- 6; Start 11/08/18 at 17:00 Magnesium Hydroxide (Milk Of Mag) 30 ml DAILY PRN PO .CONSTIPATION; Start 11/08/18 at 17:00 Pantoprazole (Protonix Tab) 40 mg DAILY@06 PO Last administered on 11/11/18at 05:32; Admin Dose 40 MG; Start 11/09/18 at 06:00 Diagnostic Test (Pha) (Accu-Chek) 1 ea 02 XX ; Start 11/09/18 at 02:00 Insulin Aspart (Novolog Insulin Pen) NOVOLOG *MILD* ALGORITHM WITH MEALS BEDTIME SC Last administered on 11/09/18at 11:52; Admin Dose 1 UNIT; Start 11/08/18 at 18:05 Miscellaneous Information 1 ea NOTE XX ; Start 11/08/18 at 18:00 Glucose (Glutose) 15 gm Q15M PRN PO DECREASED GLUCOSE; Start 11/08/18 at 18:00 Glucose (Glutose) 22.5 gm Q15M PRN PO DECREASED GLUCOSE; Start 11/08/18 at 18:00 Dextrose (D50w Syringe) 25 ml Q15M PRN IV DECREASED GLUCOSE; Start 11/08/18 at 18:00 Dextrose (D50w Syringe) 50 ml Q15M PRN IV DECREASED GLUCOSE; Start 11/08/18 at 18:00 Glucagon (Glucagen) 1 mg Q15M PRN IM DECREASED GLUCOSE; Start 11/08/18 at 18:00 Glucose (Glutose) 15 gm Q15M PRN BUCCAL DECREASED GLUCOSE; Start 11/08/18 at 18:00 Assessment/Plan Hospital Course (Demo Recall) IMPRESSION 1. Focal nodule mass in left lower lobe consistent with the patient's prior history of coccidioidomycosis. 2. Elevated liver function tests, prohibiting use of Diflucan. plan 1. Continued IV amphotericin for now. 2. Will require review of previous imaging to establish time of onset of left lower lobe lesion. 3. Continue to monitor liver function tests to exclude obstructive etiology and/or intrinsic liver issues. Can have outpatient workup of this pulmonary lesion. From a pulmonary standpoint patient does not need to remain inpatient unless absolute need for IV medications. Outpatient PET scan KRISTOPHER QUIROS MD, [facility] Nov 11, 2018 11:12
[2018-11-11] MEDS ORDERED: LIDOCAINE 1% (MPF) 5 ML VIAL SC ONE (12:00)
[2018-11-11] MEDS: AMPHOTERICIN B LIPOSOME 300 MG in DEXTROSE 5% 300 ML IVPB SCH (14:16)
[2018-11-11 14:30] VITALS: BP 114/67; PULSE 59; RESP 18
--- NOTE | 2018-11-11 17:02 | CONS ---
Consultation Date/Type/Reason Admit Date/Time Nov 08, 2018 at 13:28 Initial Consult Date SUBJECTIVE: Pt is awake, alert, afebrile. VS: stable T: 97.8 LABS: reviewed. MICROBIOLOGY: blood and urine cultures negative. Antimicrobials: Amphotericin B. Physical examination: GEN: well-developed middle-aged man, who is alert in no distress. HENT: Head atraumatic normocephalic, sclera nonicteric, neck is supple PULM: chest rise symmetrical, breath sounds clear Heart: S1-S2 Abdomen: soft, bowel sounds present Extremities: no cyanosis Assessment: Disseminated coccidiomycosis Pulmonary cocci Diabetes Plan: Patient is clinically stable. Continue current antbx treatment.Pending cardiothoracic surgery evaluation. Patient will require long-term IV amphotericin B, periodic rechecks of cocci complex fixation. Date/Time of Note DATE: 11/11/18 TIME: 16:58 Exam/Review of Systems Exam Vitals Vital Signs Date Temp Pulse Resp B/P (MAP) Pulse Ox O2 O2 Flow FiO2 Time Delivery Rate 11/11/18 97.8 59 18 114/67 96 14:30 (83) 11/10/18 Room Air 14:00 Intake and Output 11/10/18 11/10/18 11/11/18 1515:00 23:00 07:00 IntakeIntake Total 600 ml 1420 ml 1350 ml BalanceBalance 600 ml 1420 ml 1350 ml Results Result Diagram: 11/09/18 0447 11/11/18 0524 Results 24hrs Laboratory Tests Test 11/10/18 17:09 11/10/18 20:45 11/11/18 05:24 11/11/18 07:39 Bedside Glucose 106 117 136 Sodium Level 143 Potassium Level 4.2 Chloride Level 110 Carbon Dioxide Level 25 Anion Gap 8 Blood Urea Nitrogen 23 H Creatinine 1.02 Est Glomerular > 60 Filtrat Rate mL/min Glucose Level 130 Calcium Level 9.8 Phosphorus Level 3.9 Magnesium Level 2.4 Test 11/11/18 12:02 Bedside Glucose 144 Medications Medication Current Medications Amphotericin B Liposome 300 mg/ Dextrose 300 ml @ 200 mls/hr Q24H IVPB Last administered on 11/11/18at 14:16; Admin Dose 200 MLS/HR; Start 11/08/18 at 12:00 Glipizide (Glucotrol) 10 mg AC BREAKFAST DINNER PO Last administered on 11/11/18at 07:44; Admin Dose 10 MG; Start 11/08/18 at 17:35 Lisinopril (Zestril) 5 mg DAILY PO Last administered on 11/11/18at 07:47; Admin Dose 5 MG; Start 11/08/18 at 17:00 Diagnostic Test (Pha) (Accu-Chek) 1 ea AC MEALS AND BEDTIME XX ; Start 11/08/18 at 17:35 Sodium Chloride 1,000 ml @ 70 mls/hr [id number] IV Last administered on 11/11/18at 05:29; Admin Dose 70 MLS/HR; Start 11/08/18 at 16:49 IV Flush (NS 3 ml) 3 ml PER PROTOCOL IV ; Start 11/08/18 at 17:00 Ondansetron HCl (Zofran Inj) 4 mg Q6H PRN IV NAUSEA/VOMITING; Start 11/08/18 at 17:00 Acetaminophen (Tylenol Tab) 650 mg Q6H PRN PO .PAIN 1-3 OR TEMP; Start 11/08/18 at 17:00 Acetaminophen/ Hydrocodone Bitart ([place] (5/325)) 1 tab Q6H PRN PO .MOD PAIN 4- 6; Start 11/08/18 at 17:00 Magnesium Hydroxide (Milk Of Mag) 30 ml DAILY PRN PO .CONSTIPATION; Start 11/08/18 at 17:00 Pantoprazole (Protonix Tab) 40 mg DAILY@06 PO Last administered on 11/11/18at 05:32; Admin Dose 40 MG; Start 11/09/18 at 06:00 Diagnostic Test (Pha) (Accu-Chek) 1 ea 02 XX ; Start 11/09/18 at 02:00 Insulin Aspart (Novolog Insulin Pen) NOVOLOG *MILD* ALGORITHM WITH MEALS BEDTIME SC Last administered on 11/11/18at 12:06; Admin Dose 1 UNIT; Start 11/08/18 at 18:05 Miscellaneous Information 1 ea NOTE XX ; Start 11/08/18 at 18:00 Glucose (Glutose) 15 gm Q15M PRN PO DECREASED GLUCOSE; Start 11/08/18 at 18:00 Glucose (Glutose) 22.5 gm Q15M PRN PO DECREASED GLUCOSE; Start 11/08/18 at 18:00 Dextrose (D50w Syringe) 25 ml Q15M PRN IV DECREASED GLUCOSE; Start 11/08/18 at 18:00 Dextrose (D50w Syringe) 50 ml Q15M PRN IV DECREASED GLUCOSE; Start 11/08/18 at 18:00 Glucagon (Glucagen) 1 mg Q15M PRN IM DECREASED GLUCOSE; Start 11/08/18 at 18:00 Glucose (Glutose) 15 gm Q15M PRN BUCCAL DECREASED GLUCOSE; Start 11/08/18 at 18:00 ALIDA ROCHA Nov 11, 2018 17:02
[2018-11-11 20:35] VITALS: BP 109/70; PULSE 74; RESP 18
[2018-11-12] MEDS: ACCU-CHEK XX SCH ×5 (01:19→20:28)
[2018-11-12 02:25] VITALS: BP 98/60; PULSE 78; RESP 18
[2018-11-12] MEDS: PANTOPRAZOLE (EC) 40 MG TAB PO SCH (05:41)
[2018-11-12] MEDS: INSULIN ASPART [NOVOLOG] 3 ML PEN SC SCH ×4 (08:00→20:28)
[2018-11-12 08:10] VITALS: BP 109/67; PULSE 53; RESP 18
[2018-11-12] MEDS: LISINOPRIL 5 MG TAB PO SCH (08:33)
[2018-11-12] MEDS: glipiZIDE 10 MG TAB PO SCH ×2 (08:33→17:29)
[2018-11-12] MEDS: AMPHOTERICIN B LIPOSOME 300 MG in DEXTROSE 5% 300 ML IVPB SCH (12:48)
--- NOTE | 2018-11-12 13:51 | CONS ---
Consult Date/Type/Reason Admit Date/Time Nov 08, 2018 at 13:28 Initial Consult Date Type of Consult Pulmonary Date/Time of Note DATE: 11/12/18 TIME: 13:50 Subjective Patient appears comfortable this morning no respiratory distress. Objective Vital Signs Date Temp Pulse Resp B/P (MAP) Pulse Ox O2 O2 Flow FiO2 Time Delivery Rate 11/12/18 98.7 53 18 109/67 94 Room Air 08:10 (81) Intake and Output 11/11/18 11/11/18 11/12/18 1515:00 23:00 07:00 IntakeIntake Total 2850 ml 1490 ml BalanceBalance 2850 ml 1490 ml Exam PHYSICAL EXAMINATION: GENERAL: Well-nourished, well-developed gentleman, talking in full and complete sentences. VITAL SIGNS: NECK: Supple, no JVD or lymphadenopathy. CARDIAC: S1, S2, no added sounds or murmurs. CHEST: Diminished air entry bilaterally. ABDOMEN: Soft, nontender. No guarding or rebound. EXTREMITIES: No cyanosis, clubbing, 1+ edema. NEUROLOGIC: Grossly intact. No focal deficits. Results/Medications Result Diagram: 11/09/18 0447 11/11/18 0524 Results 24 hrs Laboratory Tests Test 11/11/18 16:57 11/11/18 18:40 11/11/18 20:43 11/12/18 08:01 Bedside Glucose 122 94 167 119 Test 11/12/18 12:24 Bedside Glucose 81 Medications Current Medications Amphotericin B Liposome 300 mg/ Dextrose 300 ml @ 200 mls/hr Q24H IVPB Last administered on 11/12/18at 12:48; Admin Dose 200 MLS/HR; Start 11/08/18 at 12:00 Glipizide (Glucotrol) 10 mg AC BREAKFAST DINNER PO Last administered on 11/12/18at 08:33; Admin Dose 10 MG; Start 11/08/18 at 17:35 Lisinopril (Zestril) 5 mg DAILY PO Last administered on 11/12/18at 08:33; Admin Dose 5 MG; Start 11/08/18 at 17:00 Diagnostic Test (Pha) (Accu-Chek) 1 ea AC MEALS AND BEDTIME XX Last administered on 11/12/18at 12:26; Admin Dose 1 EA; Start 11/08/18 at 17:35 Sodium Chloride 1,000 ml @ 70 mls/hr [id number] IV Last administered on 11/11/18at 22:05; Admin Dose 70 MLS/HR; Start 11/08/18 at 16:49 IV Flush (NS 3 ml) 3 ml PER PROTOCOL IV ; Start 11/08/18 at 17:00 Ondansetron HCl (Zofran Inj) 4 mg Q6H PRN IV NAUSEA/VOMITING; Start 11/08/18 at 17:00 Acetaminophen (Tylenol Tab) 650 mg Q6H PRN PO .PAIN 1-3 OR TEMP; Start 11/08/18 at 17:00 Acetaminophen/ Hydrocodone Bitart ([place] (5/325)) 1 tab Q6H PRN PO .MOD PAIN 4- 6; Start 11/08/18 at 17:00 Magnesium Hydroxide (Milk Of Mag) 30 ml DAILY PRN PO .CONSTIPATION; Start 11/08/18 at 17:00 Pantoprazole (Protonix Tab) 40 mg DAILY@06 PO Last administered on 11/12/18at 05:41; Admin Dose 40 MG; Start 11/09/18 at 06:00 Diagnostic Test (Pha) (Accu-Chek) 1 ea 02 XX ; Start 11/09/18 at 02:00 Insulin Aspart (Novolog Insulin Pen) NOVOLOG *MILD* ALGORITHM WITH MEALS BEDTIME SC Last administered on 11/11/18at 12:06; Admin Dose 1 UNIT; Start 11/08/18 at 18:05 Miscellaneous Information 1 ea NOTE XX ; Start 11/08/18 at 18:00 Glucose (Glutose) 15 gm Q15M PRN PO DECREASED GLUCOSE; Start 11/08/18 at 18:00 Glucose (Glutose) 22.5 gm Q15M PRN PO DECREASED GLUCOSE; Start 11/08/18 at 18:00 Dextrose (D50w Syringe) 25 ml Q15M PRN IV DECREASED GLUCOSE; Start 11/08/18 at 18:00 Dextrose (D50w Syringe) 50 ml Q15M PRN IV DECREASED GLUCOSE; Start 11/08/18 at 18:00 Glucagon (Glucagen) 1 mg Q15M PRN IM DECREASED GLUCOSE; Start 11/08/18 at 18:00 Glucose (Glutose) 15 gm Q15M PRN BUCCAL DECREASED GLUCOSE; Start 11/08/18 at 18:00 Assessment/Plan Hospital Course (Demo Recall) IMPRESSION 1. Focal nodule mass in left lower lobe consistent with the patient's prior history of coccidioidomycosis. 2. Elevated liver function tests, prohibiting use of Diflucan. plan 1. Continued IV amphotericin for now. 2. Will require review of previous imaging to establish time of onset of left lower lobe lesion. 3. Continue to monitor liver function tests to exclude obstructive etiology and/or intrinsic liver issues. Pending PICC line placement and then subsequent discharge. KRISTOPHER QUIROS MD, [facility] Nov 12, 2018 13:50
[2018-11-12 14:00] VITALS: BP 111/73; PULSE 67; RESP 18
--- NOTE | 2018-11-12 14:48 | CONS ---
Assessment/Plan Assessment/Plan Hospital Course (Demo Recall) No acute events, alert, feels good, no fevers CT chest and bone scan results noted, please see in the chart Antimicrobials: Amphotericin B. Physical examination well-developed middle-aged man who is alert in no distress. Head atraumatic normocephalic sclera nonicteric neck is supple chest rise symmetrical breath sounds clear heart S1-S2 abdomen soft bowel sounds present extremities no cyanosis Assessment: Disseminated coccidiomycosis Pulmonary cocci Diabetes Plan: Stable, pending dc arrangements, continue on Ampho B indefinitely, repeat serology for cocci complex fixation every 3 days DW pt Consultation Date/Type/Reason Admit Date/Time Nov 08, 2018 at 13:28 Initial Consult Date Type of Consult id Date/Time of Note DATE: 11/12/18 TIME: 14:46 Exam/Review of Systems Exam Vitals Vital Signs Date Temp Pulse Resp B/P (MAP) Pulse Ox O2 O2 Flow FiO2 Time Delivery Rate 11/12/18 98.7 53 18 109/67 94 Room Air 08:10 (81) Intake and Output 11/11/18 11/11/18 11/12/18 1414:59 22:59 06:59 IntakeIntake Total 2850 ml 1490 ml BalanceBalance 2850 ml 1490 ml Results Result Diagram: 11/09/18 0447 11/11/18 0524 Results 24hrs Laboratory Tests Test 11/11/18 16:57 11/11/18 18:40 11/11/18 20:43 11/12/18 08:01 Bedside Glucose 122 94 167 119 Test 11/12/18 12:24 Bedside Glucose 81 Medications Medication Current Medications Amphotericin B Liposome 300 mg/ Dextrose 300 ml @ 200 mls/hr Q24H IVPB Last administered on 11/12/18at 12:48; Admin Dose 200 MLS/HR; Start 11/08/18 at 12:00 Glipizide (Glucotrol) 10 mg AC BREAKFAST DINNER PO Last administered on 11/12/18at 08:33; Admin Dose 10 MG; Start 11/08/18 at 17:35 Lisinopril (Zestril) 5 mg DAILY PO Last administered on 11/12/18at 08:33; Admin Dose 5 MG; Start 11/08/18 at 17:00 Diagnostic Test (Pha) (Accu-Chek) 1 ea AC MEALS AND BEDTIME XX Last administered on 11/12/18at 12:26; Admin Dose 1 EA; Start 11/08/18 at 17:35 Sodium Chloride 1,000 ml @ 70 mls/hr [id number] IV Last administered on 11/11/18at 22:05; Admin Dose 70 MLS/HR; Start 11/08/18 at 16:49 IV Flush (NS 3 ml) 3 ml PER PROTOCOL IV ; Start 11/08/18 at 17:00 Ondansetron HCl (Zofran Inj) 4 mg Q6H PRN IV NAUSEA/VOMITING; Start 11/08/18 at 17:00 Acetaminophen (Tylenol Tab) 650 mg Q6H PRN PO .PAIN 1-3 OR TEMP; Start 11/08/18 at 17:00 Acetaminophen/ Hydrocodone Bitart ([place] (5/325)) 1 tab Q6H PRN PO .MOD PAIN 4- 6; Start 11/08/18 at 17:00 Magnesium Hydroxide (Milk Of Mag) 30 ml DAILY PRN PO .CONSTIPATION; Start 11/08/18 at 17:00 Pantoprazole (Protonix Tab) 40 mg DAILY@06 PO Last administered on 11/12/18at 05:41; Admin Dose 40 MG; Start 11/09/18 at 06:00 Diagnostic Test (Pha) (Accu-Chek) 1 ea 02 XX ; Start 11/09/18 at 02:00 Insulin Aspart (Novolog Insulin Pen) NOVOLOG *MILD* ALGORITHM WITH MEALS BEDTIME SC Last administered on 11/11/18at 12:06; Admin Dose 1 UNIT; Start 11/08/18 at 18:05 Miscellaneous Information 1 ea NOTE XX ; Start 11/08/18 at 18:00 Glucose (Glutose) 15 gm Q15M PRN PO DECREASED GLUCOSE; Start 11/08/18 at 18:00 Glucose (Glutose) 22.5 gm Q15M PRN PO DECREASED GLUCOSE; Start 11/08/18 at 18:00 Dextrose (D50w Syringe) 25 ml Q15M PRN IV DECREASED GLUCOSE; Start 11/08/18 at 18:00 Dextrose (D50w Syringe) 50 ml Q15M PRN IV DECREASED GLUCOSE; Start 11/08/18 at 18:00 Glucagon (Glucagen) 1 mg Q15M PRN IM DECREASED GLUCOSE; Start 11/08/18 at 18:00 Glucose (Glutose) 15 gm Q15M PRN BUCCAL DECREASED GLUCOSE; Start 11/08/18 at 18:00 DEBBIE BELL NP Nov 12, 2018 14:48
--- NOTE | 2018-11-12 15:32 | PN ---
Date/Time of Note Date/Time of Note DATE: 11/12/18 TIME: 15:28 Assessment/Plan VTE Prophylaxis Risk score (from Ns)>0 risk: 1 SCD applied (from Ns): No SCD contraindicated: low risk/ambulating Pharmacological prophylaxis: NA/contraindicated Pharm contraindication: low risk/ambulating Lines/Catheters IV [facility] Type (from [facility]): Peripheral IV Urinary Cath still in place: No Assessment/Plan Hospital Course 38 Y/ o with 1. 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 asymtomactic 2. Diabetes mellitus type II, uncontrolled. 3. Elevated LFTs, likely secondary to Diflucan/fatty liver. 4. Hyperlipidemia. 5. Hypertension. 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 negative -DVT proph. 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 arrange for iv ampho at home Result Diagram: 11/09/18 0447 11/11/18 0524 Results 24hrs Laboratory Tests Test 11/11/18 16:57 11/11/18 18:40 11/11/18 20:43 11/12/18 08:01 Bedside Glucose 122 94 167 119 Test 11/12/18 12:24 Bedside Glucose 81 Subjective 24 Hr Interval Summary Free Text/Dictation no complains seen by Dr Jiang CTS Exam/Review of Systems Exam Vitals Vital Signs Date Temp Pulse Resp B/P (MAP) Pulse Ox O2 O2 Flow FiO2 Time Delivery Rate 11/12/18 98.7 67 18 111/73 95 Room Air 14:00 (86) Intake and Output 11/11/18 11/11/18 11/12/18 1515:00 23:00 07:00 IntakeIntake Total 2850 ml 1490 ml BalanceBalance 2850 ml 1490 ml Exam Constitutional: alert, oriented Head: normocephalic Neck: supple Respiratory: clear to auscultation Cardiovascular: regular rate and rhythm Results Results 24hrs Laboratory Tests Test 11/11/18 16:57 11/11/18 18:40 11/11/18 20:43 11/12/18 08:01 Bedside Glucose 122 94 167 119 Test 11/12/18 12:24 Bedside Glucose 81 Medications Medication Current Medications Amphotericin B Liposome 300 mg/ Dextrose 300 ml @ 200 mls/hr Q24H IVPB Last administered on 11/12/18 12:48; Admin Dose 200 MLS/HR; Start 11/08/18 at 12:00 Glipizide (Glucotrol) 10 mg AC BREAKFAST DINNER PO Last administered on 11/12/18 08:33; Admin Dose 10 MG; Start 11/08/18 at 17:35 Lisinopril (Zestril) 5 mg DAILY PO Last administered on 11/12/18 08:33; Admin Dose 5 MG; Start 11/08/18 at 17:00 Diagnostic Test (Pha) (Accu-Chek) 1 ea AC MEALS AND BEDTIME XX Last administered on 11/12/18 12:26; Admin Dose 1 EA; Start 11/08/18 at 17:35 Sodium Chloride 1,000 ml @ 70 mls/hr [id number] IV Last administered on 11/11/18 22:05; Admin Dose 70 MLS/HR; Start 11/08/18 at 16:49 IV Flush (NS 3 ml) 3 ml PER PROTOCOL IV ; Start 11/08/18 at 17:00 Ondansetron HCl (Zofran Inj) 4 mg Q6H PRN IV NAUSEA/VOMITING; Start 11/08/18 at 17:00 Acetaminophen (Tylenol Tab) 650 mg Q6H PRN PO .PAIN 1-3 OR TEMP; Start 11/08/18 at 17:00 Acetaminophen/ Hydrocodone Bitart ([place] (5/325)) 1 tab Q6H PRN PO .MOD PAIN 4- 6; Start 11/08/18 at 17:00 Magnesium Hydroxide (Milk Of Mag) 30 ml DAILY PRN PO .CONSTIPATION; Start 11/08/18 at 17:00 Pantoprazole (Protonix Tab) 40 mg DAILY@06 PO Last administered on 11/12/18 05:41; Admin Dose 40 MG; Start 11/09/18 at 06:00 Diagnostic Test (Pha) (Accu-Chek) 1 ea 02 XX ; Start 11/09/18 at 02:00 Insulin Aspart (Novolog Insulin Pen) NOVOLOG *MILD* ALGORITHM WITH MEALS BEDTIME SC Last administered on 11/11/18at 12:06; Admin Dose 1 UNIT; Start 11/08/18 at 18:05 Miscellaneous Information 1 ea NOTE XX ; Start 11/08/18 at 18:00 Glucose (Glutose) 15 gm Q15M PRN PO DECREASED GLUCOSE; Start 11/08/18 at 18:00 Glucose (Glutose) 22.5 gm Q15M PRN PO DECREASED GLUCOSE; Start 11/08/18 at 18:00 Dextrose (D50w Syringe) 25 ml Q15M PRN IV DECREASED GLUCOSE; Start 11/08/18 at 18:00 Dextrose (D50w Syringe) 50 ml Q15M PRN IV DECREASED GLUCOSE; Start 11/08/18 at 18:00 Glucagon (Glucagen) 1 mg Q15M PRN IM DECREASED GLUCOSE; Start 11/08/18 at 18:00 Glucose (Glutose) 15 gm Q15M PRN BUCCAL DECREASED GLUCOSE; Start 11/08/18 at 18:00 ALYCE CALDERÓN MD Nov 12, 2018 15:32
--- NOTE | 2018-11-12 15:33 | PN ---
Date/Time of Note Date/Time of Note DATE: 11/12/18 TIME: 15:31 Assessment/Plan Lines/Catheters IV Catheter Type (from [facility]): Peripheral IV Anaya in Place (from [facility]): No Assessment/Plan Assessment/Plan 38 year old male with LLL cocci treated for last two years with diflucan and developed abnormal LFTs. He denies fever or hemoptysis. He now is on amphotericin per ID. If he continues to have elevated titers and a persistent mass in LLL after 6 weeks of amphotericin would consider lung resection. Follow up with me in 6-8 weeks Exam/Review of Systems Vital Signs Vitals Vital Signs Date Temp Pulse Resp B/P (MAP) Pulse Ox O2 O2 Flow FiO2 Time Delivery Rate 11/12/18 98.7 67 18 111/73 95 Room Air 14:00 (86) Intake and Output 11/11/18 11/11/18 11/12/18 1515:00 23:00 07:00 IntakeIntake Total 2850 ml 1490 ml BalanceBalance 2850 ml 1490 ml Results Result Diagram: 11/09/18 0447 11/11/18 0524 SAMANTHA CHENG MD Nov 12, 2018 15:33
[2018-11-12] MEDS: SOD CHLORIDE 0.9% 1,000 ML IV SCH ×2 (17:18→20:55)
[2018-11-12 20:35] VITALS: BP 106/53; PULSE 59; RESP 18
[2018-11-13] MEDS: ACCU-CHEK XX SCH ×4 (01:14→17:08)
[2018-11-13 01:58] VITALS: BP 109/65; PULSE 53; RESP 18
[2018-11-13] MEDS: PANTOPRAZOLE (EC) 40 MG TAB PO SCH (05:29)
[2018-11-13] MEDS: SOD CHLORIDE 0.9% 1,000 ML IV SCH (07:26)
[2018-11-13] MEDS: glipiZIDE 10 MG TAB PO SCH ×2 (07:57→17:08)
[2018-11-13 08:00] VITALS: BP 116/77; PULSE 56; RESP 20
[2018-11-13] MEDS: INSULIN ASPART [NOVOLOG] 3 ML PEN SC SCH ×3 (08:00→17:09)
[2018-11-13] MEDS: LISINOPRIL 5 MG TAB PO SCH (08:02)
--- NOTE | 2018-11-13 12:19 | PN ---
Date/Time of Note Date/Time of Note DATE: 11/13/18 TIME: 12:19 Assessment/Plan VTE Prophylaxis Risk score (from Nsg)>0 risk: 3 SCD applied (from Nsg): No SCD contraindicated: low risk/ambulating Pharmacological prophylaxis: NA/contraindicated Pharm contraindication: low risk/ambulating Lines/Catheters IV Catheter Type (from Nrs): PICC Line Central line still needed: Yes Urinary Cath still in place: No Assessment/Plan Hospital Course 38 Y/ o with 1. 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 asymtomactic 2. Diabetes mellitus type II, uncontrolled. 3. Elevated LFTs, likely secondary to Diflucan/fatty liver. 4. Hyperlipidemia. 5. Hypertension. Assessment/Plan - spoke to Dr Bahena to arrnage for amphotericin every other day for 6 weeks for PICC line - seen by Dr Jiang no surgical management currently, fu repeat CT scan in 6 weeks - cw insulin - cw linsopril -ambulate BID -blood cul. negative -DVT proph. 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, dc today pending amphotericin Result Diagram: 11/09/18 0447 11/13/18 0458 Results 24hrs Laboratory Tests Test 11/12/18 12:24 11/12/18 17:26 11/12/18 20:26 11/13/18 04:58 Bedside Glucose 81 93 98 Sodium Level 143 Potassium Level 3.8 Chloride Level 111 H Carbon Dioxide Level 23 Anion Gap 9 Blood Urea Nitrogen 19 Creatinine 0.89 Est Glomerular > 60 Filtrat Rate mL/min Glucose Level 106 Calcium Level 9.8 Phosphorus Level 4.0 Magnesium Level 2.3 Test 11/13/18 07:56 11/13/18 12:07 Bedside Glucose 108 164 Subjective 24 Hr Interval Summary Free Text/Dictation s/p PICC line no complains Exam/Review of Systems Exam Vitals Vital Signs Date Temp Pulse Resp B/P (MAP) Pulse Ox O2 O2 Flow FiO2 Time Delivery Rate 11/13/18 98.6 56 20 116/77 96 08:00 (90) 11/12/18 Room Air 14:00 Intake and Output 11/12/18 11/12/18 11/13/18 1515:00 23:00 07:00 IntakeIntake Total 1100 ml 810 ml 490 ml BalanceBalance 1100 ml 810 ml 490 ml Exam Constitutional: alert, oriented Head: normocephalic Neck: supple Respiratory: clear to auscultation Cardiovascular: regular rate and rhythm Results Results 24hrs Laboratory Tests Test 11/12/18 12:24 11/12/18 17:26 11/12/18 20:26 11/13/18 04:58 Bedside Glucose 81 93 98 Sodium Level 143 Potassium Level 3.8 Chloride Level 111 H Carbon Dioxide Level 23 Anion Gap 9 Blood Urea Nitrogen 19 Creatinine 0.89 Est Glomerular > 60 Filtrat Rate mL/min Glucose Level 106 Calcium Level 9.8 Phosphorus Level 4.0 Magnesium Level 2.3 Test 11/13/18 07:56 11/13/18 12:07 Bedside Glucose 108 164 Medications Medication Current Medications Amphotericin B Liposome 300 mg/ Dextrose 300 ml @ 200 mls/hr Q24H IVPB Last administered on 11/12/18 12:48; Admin Dose 200 MLS/HR; Start 11/08/18 at 12:00 Glipizide (Glucotrol) 10 mg AC BREAKFAST DINNER PO Last administered on 11/13/18 07:57; Admin Dose 10 MG; Start 11/08/18 at 17:35 Lisinopril (Zestril) 5 mg DAILY PO Last administered on 11/13/18 08:02; Admin Dose 5 MG; Start 11/08/18 at 17:00 Diagnostic Test (Pha) (Accu-Chek) 1 ea AC MEALS AND BEDTIME XX Last administered on 11/12/18 20:28; Admin Dose 1 EA; Start 11/08/18 at 17:35 Sodium Chloride 1,000 ml @ 70 mls/hr [id number] IV Last administered on 11/13/18 07:26; Admin Dose 70 MLS/HR; Start 11/08/18 at 16:49 IV Flush (NS 3 ml) 3 ml PER PROTOCOL IV ; Start 11/08/18 at 17:00 Ondansetron HCl (Zofran Inj) 4 mg Q6H PRN IV NAUSEA/VOMITING; Start 11/08/18 at 17:00 Acetaminophen (Tylenol Tab) 650 mg Q6H PRN PO .PAIN 1-3 OR TEMP Last administered on 11/12/18at 17:29; Admin Dose 650 MG; Start 11/08/18 at 17:00 Acetaminophen/ Hydrocodone Bitart ([place] (5/325)) 1 tab Q6H PRN PO .MOD PAIN 4- 6; Start 11/08/18 at 17:00 Magnesium Hydroxide (Milk Of Mag) 30 ml DAILY PRN PO .CONSTIPATION; Start 11/08/18 at 17:00 Pantoprazole (Protonix Tab) 40 mg DAILY@06 PO Last administered on 11/13/18at 05:29; Admin Dose 40 MG; Start 11/09/18 at 06:00 Diagnostic Test (Pha) (Accu-Chek) 1 ea 02 XX ; Start 11/09/18 at 02:00 Insulin Aspart (Novolog Insulin Pen) NOVOLOG *MILD* ALGORITHM WITH MEALS BEDTIME SC Last administered on 11/13/18at 12:09; Admin Dose 1 UNIT; Start 11/08/18 at 18:05 Miscellaneous Information 1 ea NOTE XX ; Start 11/08/18 at 18:00 Glucose (Glutose) 15 gm Q15M PRN PO DECREASED GLUCOSE; Start 11/08/18 at 18:00 Glucose (Glutose) 22.5 gm Q15M PRN PO DECREASED GLUCOSE; Start 11/08/18 at 18:00 Dextrose (D50w Syringe) 25 ml Q15M PRN IV DECREASED GLUCOSE; Start 11/08/18 at 18:00 Dextrose (D50w Syringe) 50 ml Q15M PRN IV DECREASED GLUCOSE; Start 11/08/18 at 18:00 Glucagon (Glucagen) 1 mg Q15M PRN IM DECREASED GLUCOSE; Start 11/08/18 at 18:00 Glucose (Glutose) 15 gm Q15M PRN BUCCAL DECREASED GLUCOSE; Start 11/08/18 at 18:00 IV Flush (NS 10 ml) 10 ml PRN PRN IV IV PROTOCOL; Start 11/12/18 at 17:00 ALYCE CALDERÓN MD Nov 13, 2018 12:19
[2018-11-13] MEDS: AMPHOTERICIN B LIPOSOME 300 MG in DEXTROSE 5% 300 ML IVPB SCH (12:22)
--- NOTE | 2018-11-13 12:29 | CONS ---
Assessment/Plan Assessment/Plan Hospital Course (Demo Recall) No acute events, no fevers CT chest and bone scan results noted, please see in the chart Antimicrobials: Amphotericin B. Physical examination well-developed middle-aged man who is alert in no distress. Head atraumatic normocephalic sclera nonicteric neck is supple chest rise symmetrical breath sounds clear heart S1-S2 abdomen soft bowel sounds present extremities no cyanosis Assessment: Disseminated coccidiomycosis Pulmonary cocci Diabetes Plan: Remains stable, pending dc arrangements on Ampho B indefinitely, need periodic check of cocci complex fixation Consultation Date/Type/Reason Admit Date/Time Nov 08, 2018 at 13:28 Initial Consult Date Type of Consult id Date/Time of Note DATE: 11/13/18 TIME: 12:28 Exam/Review of Systems Exam Vitals Vital Signs Date Temp Pulse Resp B/P (MAP) Pulse Ox O2 O2 Flow FiO2 Time Delivery Rate 11/13/18 98.6 56 20 116/77 96 08:00 (90) 11/12/18 Room Air 14:00 Intake and Output 11/12/18 11/12/18 11/13/18 1515:00 23:00 07:00 IntakeIntake Total 1100 ml 810 ml 490 ml BalanceBalance 1100 ml 810 ml 490 ml Results Result Diagram: 11/09/18 0447 11/13/18 0458 Results 24hrs Laboratory Tests Test 11/12/18 17:26 11/12/18 20:26 11/13/18 04:58 11/13/18 07:56 Bedside Glucose 93 98 108 Sodium Level 143 Potassium Level 3.8 Chloride Level 111 H Carbon Dioxide Level 23 Anion Gap 9 Blood Urea Nitrogen 19 Creatinine 0.89 Est Glomerular > 60 Filtrat Rate mL/min Glucose Level 106 Calcium Level 9.8 Phosphorus Level 4.0 Magnesium Level 2.3 Test 11/13/18 12:07 Bedside Glucose 164 Medications Medication Current Medications Amphotericin B Liposome 300 mg/ Dextrose 300 ml @ 200 mls/hr Q24H IVPB Last administered on 11/13/18at 12:22; Admin Dose 200 MLS/HR; Start 11/08/18 at 12:00 Glipizide (Glucotrol) 10 mg AC BREAKFAST DINNER PO Last administered on 11/13/18at 07:57; Admin Dose 10 MG; Start 11/08/18 at 17:35 Lisinopril (Zestril) 5 mg DAILY PO Last administered on 11/13/18 08:02; Admin Dose 5 MG; Start 11/08/18 at 17:00 Diagnostic Test (Pha) (Accu-Chek) 1 ea AC MEALS AND BEDTIME XX Last administered on 11/12/18 20:28; Admin Dose 1 EA; Start 11/08/18 at 17:35 Sodium Chloride 1,000 ml @ 70 mls/hr [id number] IV Last administered on 11/13/18 07:26; Admin Dose 70 MLS/HR; Start 11/08/18 at 16:49 IV Flush (NS 3 ml) 3 ml PER PROTOCOL IV ; Start 11/08/18 at 17:00 Ondansetron HCl (Zofran Inj) 4 mg Q6H PRN IV NAUSEA/VOMITING; Start 11/08/18 at 17:00 Acetaminophen (Tylenol Tab) 650 mg Q6H PRN PO .PAIN 1-3 OR TEMP Last administered on 11/12/18 17:29; Admin Dose 650 MG; Start 11/08/18 at 17:00 Acetaminophen/ Hydrocodone Bitart ([place] (5/325)) 1 tab Q6H PRN PO .MOD PAIN 4- 6; Start 11/08/18 at 17:00 Magnesium Hydroxide (Milk Of Mag) 30 ml DAILY PRN PO .CONSTIPATION; Start 11/08/18 at 17:00 Pantoprazole (Protonix Tab) 40 mg DAILY@06 PO Last administered on 11/13/18 05:29; Admin Dose 40 MG; Start 11/09/18 at 06:00 Diagnostic Test (Pha) (Accu-Chek) 1 ea 02 XX ; Start 11/09/18 at 02:00 Insulin Aspart (Novolog Insulin Pen) NOVOLOG *MILD* ALGORITHM WITH MEALS BEDTIME SC Last administered on 11/13/18 12:09; Admin Dose 1 UNIT; Start 11/08/18 at 18:05 Miscellaneous Information 1 ea NOTE XX ; Start 11/08/18 at 18:00 Glucose (Glutose) 15 gm Q15M PRN PO DECREASED GLUCOSE; Start 11/08/18 at 18:00 Glucose (Glutose) 22.5 gm Q15M PRN PO DECREASED GLUCOSE; Start 11/08/18 at 18:00 Dextrose (D50w Syringe) 25 ml Q15M PRN IV DECREASED GLUCOSE; Start 11/08/18 at 18:00 Dextrose (D50w Syringe) 50 ml Q15M PRN IV DECREASED GLUCOSE; Start 11/08/18 at 18:00 Glucagon (Glucagen) 1 mg Q15M PRN IM DECREASED GLUCOSE; Start 11/08/18 at 18:00 Glucose (Glutose) 15 gm Q15M PRN BUCCAL DECREASED GLUCOSE; Start 11/08/18 at 18:00 IV Flush (NS 10 ml) 10 ml PRN PRN IV IV PROTOCOL; Start 11/12/18 at 17:00 DEBBIE BELL NP Nov 13, 2018 12:29
--- NOTE | 2018-11-13 12:35 | PDOCDIS ---
Discharge Instructions DIAGNOSIS Discharge Diagnosis Pulm coccimycosis CONDITION [id number] Patient Condition: [id number] Fair HOME CARE INSTRUCTIONS: [id number] Your diet recommendation is: [id number] carb controlled ACTIVITY: [id number] Activity Restrictions: [id number] Slowly Increase Activity Rest between Activity Avoid heavy lifting FOLLOW UP/APPOINTMENTS Follow-up Plan f/u Dr Bahena in 2-3 weeks fu PCP in 2-3 weeks f/u Dr Jiang in 1 month keep dressing clean ALYCE CALDERÓN MD Nov 13, 2018 12:35
[2018-11-13 14:00] VITALS: BP 112/69; PULSE 86; RESP 18
--- NOTE | 2018-11-13 15:09 | CONS ---
Consult Date/Type/Reason Admit Date/Time Nov 08, 2018 at 13:28 Initial Consult Date Type of Consult Pulmonary Date/Time of Note DATE: 11/13/18 TIME: 15:08 Subjective Patient comfortable this morning no respiratory distress Objective Vital Signs Date Temp Pulse Resp B/P (MAP) Pulse Ox O2 O2 Flow FiO2 Time Delivery Rate 11/13/18 98.6 56 20 116/77 96 08:00 (90) 11/12/18 Room Air 14:00 Intake and Output 11/12/18 11/12/18 11/13/18 1515:00 23:00 07:00 IntakeIntake Total 1100 ml 810 ml 490 ml BalanceBalance 1100 ml 810 ml 490 ml Exam PHYSICAL EXAMINATION: GENERAL: Well-nourished, well-developed gentleman, talking in full and complete sentences. VITAL SIGNS: NECK: Supple, no JVD or lymphadenopathy. CARDIAC: S1, S2, no added sounds or murmurs. CHEST: Diminished air entry bilaterally. ABDOMEN: Soft, nontender. No guarding or rebound. EXTREMITIES: No cyanosis, clubbing, 1+ edema. NEUROLOGIC: Grossly intact. No focal deficits. Results/Medications Result Diagram: 11/09/18 0447 11/13/18 0458 Results 24 hrs Laboratory Tests Test 11/12/18 17:26 11/12/18 20:26 11/13/18 04:58 11/13/18 07:56 Bedside Glucose 93 98 108 Sodium Level 143 Potassium Level 3.8 Chloride Level 111 H Carbon Dioxide Level 23 Anion Gap 9 Blood Urea Nitrogen 19 Creatinine 0.89 Est Glomerular > 60 Filtrat Rate mL/min Glucose Level 106 Calcium Level 9.8 Phosphorus Level 4.0 Magnesium Level 2.3 Test 11/13/18 12:07 Bedside Glucose 164 Medications Current Medications Amphotericin B Liposome 300 mg/ Dextrose 300 ml @ 200 mls/hr Q24H IVPB Last administered on 11/13/18at 12:22; Admin Dose 200 MLS/HR; Start 11/08/18 at 12:00 Glipizide (Glucotrol) 10 mg AC BREAKFAST DINNER PO Last administered on 11/13/18at 07:57; Admin Dose 10 MG; Start 11/08/18 at 17:35 Lisinopril (Zestril) 5 mg DAILY PO Last administered on 11/13/18at 08:02; Admin Dose 5 MG; Start 11/08/18 at 17:00 Diagnostic Test (Pha) (Accu-Chek) 1 ea AC MEALS AND BEDTIME XX Last administered on 11/12/18 20:28; Admin Dose 1 EA; Start 11/08/18 at 17:35 Sodium Chloride 1,000 ml @ 70 mls/hr [id number] IV Last administered on 11/13/18 07:26; Admin Dose 70 MLS/HR; Start 11/08/18 at 16:49 IV Flush (NS 3 ml) 3 ml PER PROTOCOL IV ; Start 11/08/18 at 17:00 Ondansetron HCl (Zofran Inj) 4 mg Q6H PRN IV NAUSEA/VOMITING; Start 11/08/18 at 17:00 Acetaminophen (Tylenol Tab) 650 mg Q6H PRN PO .PAIN 1-3 OR TEMP Last adm inistered on 11/12/18at 17:29; Admin Dose 650 MG; Start 11/08/18 at 17:00 Acetaminophen/ Hydrocodone Bitart ([place] (5/325)) 1 tab Q6H PRN PO .MOD PAIN 4- 6; Start 11/08/18 at 17:00 Magnesium Hydroxide (Milk Of Mag) 30 ml DAILY PRN PO .CONSTIPATION; Start 11/08/18 at 17:00 Pantoprazole (Protonix Tab) 40 mg DAILY@06 PO Last administered on 11/13/18 05:29; Admin Dose 40 MG; Start 11/09/18 at 06:00 Diagnostic Test (Pha) (Accu-Chek) 1 ea 02 XX ; Start 11/09/18 at 02:00 Insulin Aspart (Novolog Insulin Pen) NOVOLOG *MILD* ALGORITHM WITH MEALS BEDTIME SC Last administered on 11/13/18 12:09; Admin Dose 1 UNIT; Start 11/08/18 at 18:05 Miscellaneous Information 1 ea NOTE XX ; Start 11/08/18 at 18:00 Glucose (Glutose) 15 gm Q15M PRN PO DECREASED GLUCOSE; Start 11/08/18 at 18:00 Glucose (Glutose) 22.5 gm Q15M PRN PO DECREASED GLUCOSE; Start 11/08/18 at 18:00 Dextrose (D50w Syringe) 25 ml Q15M PRN IV DECREASED GLUCOSE; Start 11/08/18 at 18:00 Dextrose (D50w Syringe) 50 ml Q15M PRN IV DECREASED GLUCOSE; Start 11/08/18 at 18:00 Glucagon (Glucagen) 1 mg Q15M PRN IM DECREASED GLUCOSE; Start 11/08/18 at 18:00 Glucose (Glutose) 15 gm Q15M PRN BUCCAL DECREASED GLUCOSE; Start 11/08/18 at 18:00 IV Flush (NS 10 ml) 10 ml PRN PRN IV IV PROTOCOL; Start 11/12/18 at 17:00 Assessment/Plan Hospital Course (Demo Recall) IMPRESSION 1. Focal nodule mass in left lower lobe consistent with the patient's prior history of coccidioidomycosis. 2. Elevated liver function tests, prohibiting use of Diflucan. plan 1. Continued IV amphotericin for now. 2. Will require review of previous imaging to establish time of onset of left lower lobe lesion. 3. Continue to monitor liver function tests to exclude obstructive etiology and/or intrinsic liver issues. DC with IV amphotericin. Repeat CT scan 4-6 weeks. Possible outpatient PET scan. If unresponsive to IV amphotericin and then will consider thoracic surgery evaluation. KRISTOPHER QUIROS MD, [facility] Nov 13, 2018 15:09
== END 2018-11-13 18:25 | disposition home health service (06) | DRG 178 ==
LOC: E/R 10:50 → PP2 13:28 → CANRESERV 13:45 → PP2 21:40
PROVIDERS: ADMIT Internal Medicine; ATTEND Internal Medicine
PROC: 02HV33Z Insertion of Infusion Device into Superior Vena Cava, Percutaneous Approach (ICD-10-PCS; principal; 2018-11-12)
DX: B38.1 Chronic pulmonary coccidioidomycosis (principal); B38.7 Disseminated coccidioidomycosis; E11.8 Type 2 diabetes mellitus with unspecified complications; E13.40 Other specified diabetes mellitus with diabetic neuropathy, unspecified; K76.0 Fatty (change of) liver, not elsewhere classified; E78.5 Hyperlipidemia, unspecified; I10 Essential (primary) hypertension
CPT/HCPCS: 36569; 71045; 71260; 76937; 78306; 80048; 80053; 81003; 82150; 82962; 83036; 83690; 83735; 84100; 84484; 85025; 85610; 85730; 87086; 93005; A9503; J0289; J1815; J7030; J7060; Q9967